=== PATIENT | female | born 1985 | race Caucasian/White ===

== ENCOUNTER 2016-08-11 23:57 | Outpatient (CLI) | payer OTHER | END 2016-08-11 23:58 | disposition critical access hospital (66) | LOC: EMS 23:57 | PROVIDERS: ATTEND Surgery | DX: T46.5X2A Poisoning by other antihypertensive drugs, intentional self-harm, initial encounter (principal); R47.81 Slurred speech; Y92.009 Unspecified place in unspecified non-institutional (private) residence as the place of occurrence of the external cause | CPT/HCPCS: A0425; A0427 ==

== ENCOUNTER 2016-08-12 00:13 | Emergency (ER) | payer OTHER ==
[2016-08-12] MEDS ORDERED: SODIUM CHLORIDE 0.9% 1,000 ML IV ONE (00:20)
[2016-08-12 00:48] LABS: BASOPHILS % (AUTO) 0.3 %; EOSINOPHILS # (AUTO) 0.1 10^3/uL (0.0-0.7); EOSINOPHILS % (AUTO) 0.6 %; HCT - HEMATOCRIT 40.1 % (37.0-47.0); HGB - HEMOGLOBIN 13.8 g/dL (12.0-16.0); LYMPHOCYTES # (AUTO) 2.3 10^3/uL (1.5-3.5); LYMPHOCYTES % (AUTO) 15.4 %; MEAN CORPUSCULAR HGB CONC 34.5 g/dL (32.0-36.0); MEAN CORPUSCULAR VOLUME 89.9 fL (81.0-99.0); MEAN PLATELET VOLUME 7.3 fL (7.9-10.8); MONOCYTES % (AUTO) 6.4 %; NEUTROPHILS # (AUTO) 11.8 10^3/uL (1.5-6.6); NEUTROPHILS % (AUTO) 77.3 %; RED BLOOD COUNT 4.46 10^6/uL (4.20-5.40); RED CELL DISTRIBUTION WIDTH 13.2 % (12.0-15.0); UNCORRECTED WHITE BLOOD COUNT 15.2 x10^3/uL; WHITE BLOOD COUNT 15.2 x10^3/uL (4.8-10.8)
[2016-08-12 01:04] LABS: ALBUMIN/GLOBULIN RATIO 1.5 (1.0-2.2); BILIRUBIN,TOTAL 0.3 mg/dL (0.2-1.0); BUN - BLOOD UREA NITROGEN 10 mg/dL (6-20); CALCIUM 8.7 mg/dL (8.5-10.3); CARBON DIOXIDE - CO2 24 mmol/L (21-32); CHLORIDE 100 mmol/L (101-111); CREATININE 0.8 mg/dL (0.4-1.0); GFR - MDRD 83 (>89); GLUCOSE 239 mg/dL (70-100); LIPASE 21 U/L (22-51); POTASSIUM 3.8 mmol/L (3.5-5.0); SALICYLATE < 6.0 mg/dL; SODIUM 134 mmol/L (135-145); TOTAL PROTEIN 7.4 g/dL (6.7-8.2)
[2016-08-12 01:06] LABS: BILIRUBIN,URINE NEGATIVE (NEGATIVE); PH,URINE 6.5 PH (5.0-7.5)
[2016-08-12 01:06] LABS: ACETAMINOPHEN < 10 ug/mL (10-30)
[2016-08-12 01:09] LABS: HCG UR QUAL NEGATIVE; UA w/ MICROSCOPIC CHARGE YES
[2016-08-12 01:15] LABS: UR CULTURE IF IND NOT INDICATED; WBC,URINE 0-3 /HPF (0-5)
[2016-08-12 05:06] VITALS: BP 159/93
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
== END 2016-08-12 06:27 | disposition home or self-care (01) ==
LOC: EDUNIT# → ED 00:13
DX: F32.9 Major depressive disorder, single episode, unspecified (principal); T46.5X1A Poisoning by other antihypertensive drugs, accidental (unintentional), initial encounter; F43.10 Post-traumatic stress disorder, unspecified; E03.9 Hypothyroidism, unspecified
CPT/HCPCS: 36415; 80053; 80306; 80307; 80320; 80329; 81001; 81003; 81025; 83690; 84443; 85025; 87086; 93005; 93010; 99284; 99285

== ENCOUNTER 2017-01-30 12:44 | Outpatient (CLI) | payer OTHER | END 2017-01-30 12:45 | disposition critical access hospital (66) | LOC: EMS 12:44 | PROVIDERS: ATTEND Surgery | DX: M54.2 Cervicalgia (principal); V47.5XXA Car driver injured in collision with fixed or stationary object in traffic accident, initial encounter; Y92.414 Local residential or business street as the place of occurrence of the external cause | CPT/HCPCS: A0425; A0429 ==

== ENCOUNTER 2017-01-30 12:56 | Emergency (ER) | payer OTHER ==
[2017-01-30] MEDS ORDERED: HYDROcod/ACETAM 5/325 MG TABLET PO STA (13:11)
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
[2017-01-30] MEDS ORDERED: HYDROcod/ACETAM 5/325 MG TABLET ONE (13:20)
--- NOTE | 2017-01-30 14:06 | CT Preliminary Report ---
Exam: CT HEAD W/O IMPRESSION: Right maxillary sinus opacification. Otherwise negative study. [facility] SITE ID: [id number]
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
--- NOTE | 2017-01-30 14:10 | CT Preliminary Report ---
Exam: CT CERVICAL SPINE W/O IMPRESSION: No acute disease. [facility] SITE ID: [id number]
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
--- NOTE | 2017-01-30 14:13 | CT Preliminary Report ---
Exam: CT CHEST W/O IMPRESSION: Renal calculi. No acute disease. [facility] SITE ID: [id number]
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
[2017-01-30 14:34] VITALS: BP 168/104
== END 2017-01-30 14:35 | disposition home or self-care (01) ==
LOC: EDUNIT# → ED 12:56
DX: S06.0X0A Concussion without loss of consciousness, initial encounter (principal); V47.5XXA Car driver injured in collision with fixed or stationary object in traffic accident, initial encounter; Y92.488 Other paved roadways as the place of occurrence of the external cause; E78.00 Pure hypercholesterolemia, unspecified; E03.9 Hypothyroidism, unspecified; S39.92XA Unspecified injury of lower back, initial encounter; M54.2 Cervicalgia; R03.0 Elevated blood-pressure reading, without diagnosis of hypertension; Z87.442 Personal history of urinary calculi
CPT/HCPCS: 70450; 71250; 72125; 99283; 99284; A9270

== ENCOUNTER 2017-02-01 12:35 | Outpatient (CLI) | payer OTHER | END 2017-02-01 12:36 | disposition critical access hospital (66) | LOC: EMS 12:35 | PROVIDERS: ATTEND Surgery | DX: R45.851 Suicidal ideations (principal) | CPT/HCPCS: A0425; A0427 ==

== ENCOUNTER 2017-02-01 12:50 | Inpatient (IN) | payer OTHER ==
[~2017-02-01 12:50] MED LIST: SODIUM CHLORIDE 0.9% 1,000 ML IV ONE
[2017-02-01 13:28] LABS: BASOPHILS % (AUTO) 0.4 %; EOSINOPHILS # (AUTO) 0.1 10^3/uL (0.0-0.7); EOSINOPHILS % (AUTO) 0.8 %; HCT - HEMATOCRIT 41.6 % (37.0-47.0); HGB - HEMOGLOBIN 14.1 g/dL (12.0-16.0); LYMPHOCYTES # (AUTO) 1.1 10^3/uL (1.5-3.5); LYMPHOCYTES % (AUTO) 8.7 %; MEAN CORPUSCULAR HEMOGLOBIN 30.5 pg (27.0-31.0); MEAN CORPUSCULAR HGB CONC 33.9 g/dL (32.0-36.0); MEAN CORPUSCULAR VOLUME 89.8 fL (81.0-99.0); MEAN PLATELET VOLUME 6.4 fL (7.9-10.8); MONOCYTES # (AUTO) 0.8 10^3/uL (0.0-1.0); MONOCYTES % (AUTO) 6.5 %; NEUTROPHILS % (AUTO) 83.6 %; RED BLOOD COUNT 4.64 10^6/uL (4.20-5.40); RED CELL DISTRIBUTION WIDTH 12.8 % (12.0-15.0); UNCORRECTED WHITE BLOOD COUNT 13.1 x10^3/uL; WHITE BLOOD COUNT 13.1 x10^3/uL (4.8-10.8)
[2017-02-01 13:32] LABS: BILIRUBIN,URINE NEGATIVE (NEGATIVE); HCG UR QUAL NEGATIVE; UA CHARGE (STRIP ONLY) YES; UR CULTURE IF IND NOT INDICATED
[2017-02-01 13:44] LABS: ALBUMIN/GLOBULIN RATIO 1.3 (1.0-2.2); BILIRUBIN,TOTAL 0.9 mg/dL (0.2-1.0); BUN - BLOOD UREA NITROGEN 26 mg/dL (6-20); CALCIUM 9.2 mg/dL (8.5-10.3); CARBON DIOXIDE - CO2 23 mmol/L (21-32); CHLORIDE 105 mmol/L (101-111); CREATININE 0.8 mg/dL (0.4-1.0); GFR - MDRD 83 (>89); GLUCOSE 123 mg/dL (70-100); LIPASE 28 U/L (22-51); POTASSIUM 3.7 mmol/L (3.5-5.0); SALICYLATE < 6.0 mg/dL; SODIUM 140 mmol/L (135-145); TOTAL PROTEIN 6.8 g/dL (6.7-8.2)
[2017-02-01 13:49] LABS: ACETAMINOPHEN < 10 ug/mL (10-30)
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
--- NOTE | 2017-02-01 15:08 | CT Preliminary Report ---
Exam: CT HEAD W/O IMPRESSION: 1. No acute or focal intracranial abnormality seen. 2. Complete opacification of the visualized portions of the right maxillary sinus with increased dens ity, could represent blood, inspissated mucus or fungal infection in the appropriate clinical setting . This was present on the prior. [facility] SITE ID: [id number]
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
[2017-02-01] MEDS ORDERED: ONDANSETRON ODT 4 MG TABLET TL PRN (16:08)
[2017-02-01] MEDS: SODIUM CHLORIDE 0.9% 1,000 ML IV SCH (18:34)
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
[2017-02-01] MEDS: SODIUM CHLORIDE FLUSH 0.9% 10 ML SYRINGE IVP SCH (20:44)
[2017-02-02] MEDS: SODIUM CHLORIDE 0.9% 1,000 ML IV SCH ×2 (05:03→14:53)
[2017-02-02 05:58] LABS: BASOPHILS % (AUTO) 0.2 %; EOSINOPHILS # (AUTO) 0.1 10^3/uL (0.0-0.7); EOSINOPHILS % (AUTO) 0.5 %; HCT - HEMATOCRIT 41.7 % (37.0-47.0); HGB - HEMOGLOBIN 13.6 g/dL (12.0-16.0); MEAN CORPUSCULAR HGB CONC 32.6 g/dL (32.0-36.0); MEAN CORPUSCULAR VOLUME 91.8 fL (81.0-99.0); MEAN PLATELET VOLUME 6.6 fL (7.9-10.8); MONOCYTES # (AUTO) 0.7 10^3/uL (0.0-1.0); MONOCYTES % (AUTO) 5.1 %; NEUTROPHILS # (AUTO) 12.7 10^3/uL (1.5-6.6); NEUTROPHILS % (AUTO) 87.2 %; RED BLOOD COUNT 4.54 10^6/uL (4.20-5.40); UNCORRECTED WHITE BLOOD COUNT 14.6 x10^3/uL; WHITE BLOOD COUNT 14.6 x10^3/uL (4.8-10.8)
[2017-02-02] MEDS: SODIUM CHLORIDE FLUSH 0.9% 10 ML SYRINGE IVP SCH ×3 (06:40→21:50)
[2017-02-02] MEDS: POLYETHYLENE GLYCOL 3350 17 GM PACKET PO SCH (09:27)
[2017-02-02] MEDS ORDERED: ACETAMINOPHEN 325 MG TABLET PO PRN (13:29)
--- NOTE | 2017-02-02 16:58 | PROVIDER PROGRESS NOTE ---
Subjective - Prog Note Date Prog Note Date: 02/02/17 Prog Note Time: 16:55 - Subjective Pt reports feeling: Improved Subjective: She is woken up a couple of times. Has been appropriate in her speech. She asked for a bath to get all that sharply writing off of her. She goes to sleep very easily. She has yet to eat anything. Current Medications - Current Medications Current Medications: Active Medications Acetaminophen (Tylenol) 650 mg PO Q4HR PRN PRN Reason: Pain 1 to 4 Acetaminophen (Tylenol) 650 mg PO Q4HR PRN PRN Reason: Pain or Fever > 38C (100.4F) Sodium Chloride (Normal Saline 0.9%) 1,000 mls @ 100 mls/hr IV .Q10H [facility] Last Admin: 02/02/17 14:53 Dose: 100 mls/hr Ondansetron HCl (Zofran Inj) 4 mg IVP Q6HR PRN PRN Reason: Nausea / Vomiting Ondansetron HCl (Zofran Odt) 4 mg TL Q6HR PRN PRN Reason: Nausea / Vomiting Polyethylene Glycol (Miralax) 17 gm PO DAILY [facility] Last Admin: 02/02/17 09:27 Dose: Not Given Sodium Chloride (Normal Saline Flush 0.9%) 10 ml IVP PRN PRN PRN Reason: NEEDED PER PROVIDER ORDERS Sodium Chloride (Normal Saline Flush 0.9%) 10 ml IVP Q8HR [facility] Last Admin: 02/02/17 14:53 Dose: 10 ml cloNIDine [Catapres] 0.2 mg PO QPM 05/22/15 Propranolol [Inderal] 20 mg PO DAILY 02/01/17 Albuterol Sulfate [Proair Hfa Inhaler] 2 puffs INH Q4H PRN 02/02/17 Atorvastatin Calcium 40 mg PO QPM 02/02/17 Cetirizine [ZyrTEC] 10 mg PO DAILY PRN 02/02/17 Dextroamphetamine/Amphetamine [Adderall Xr 20 mg Capsule] 20 mg PO DAILY Fluoxetine HCl [Fluoxetine HCl] 40 mg PO DAILY 02/02/17 Lorazepam [Ativan] 5 - 6 mg PO PRN PRN 02/02/17 Methylphenidate HCl [Concerta] 54 mg PO DAILY 02/02/17 Phenazopyridine HCl [Urinary Pain Relief] 97.5 mg PO PRN PRN 02/02/17 Phentermine HCl [Adipex-P] 37.5 mg PO BID 02/02/17 lamoTRIgine [Lamictal] 200 mg PO DAILY 02/02/17 Objective - Vital Signs/Intake & Output Reviewed Vital Signs: Yes Vital Signs: Vital Signs x48h Temp Pulse Pulse Resp BP Pulse Ox 02/02/17 15:18 36.7 C 78 20 122/78 95 02/02/17 13:10 36.6 C 80 18 117/78 97 Intake & Output: Intake & Output 01/30/17 01/31/17 02/01/17 02/02/17 23:59 23:59 23:59 23:59 Intake Total 1983.333 Output Total 550 575 Balance -550 1408.333 - Objective General Appearance: positive: No acute distress, Lethargic, Other (Sleeping most of the day. Does respond to voice. Wakes up easily. Because right back to sleep.) Eyes Bilateral: positive: PERRL, EOMI ENT: positive: Pharynx nml Neck: positive: No JVD. negative: Stiff neck, Carotid bruit Respiratory: positive: Chest non-tender, Other (Will snore at times in her sleep ). negative: Wheezes, Rales, Rhonchi Cardiovascular: positive: Regular rate & rhythm. negative: Gallop/S4, Friction rub Abdomen: positive: Non-tender, No organomegaly, Nml bowel sounds, No distention Skin: positive: Warm, Dry Extremities: positive: Non-tender, No pedal edema Neurologic/Psychiatric: positive: CN's nml (2-12), Motor nml, Disoriented to time - Lab Results Fish Bones: 02/02/17 05:41 02/01/17 13:23 Other Labs: Lab Results x24hrs 02/02/17 02/02/17 Range/Units 05:41 05:41 WBC 14.6 H (4.8-10.8) x10^3/uL RBC 4.54 (4.20-5.40) 10^6/uL Hgb 13.6 (12.0-16.0) g/dL Hct 41.7 (37.0-47.0) % MCV 91.8 (81.0-99.0) fL MCH 30.0 (27.0-31.0) pg MCHC 32.6 (32.0-36.0) g/dL RDW 13.0 (12.0-15.0) % Plt Count 301 (130-450) 10^3/uL MPV 6.6 L (7.9-10.8) fL Neut # 12.7 H (1.5-6.6) 10^3/uL Lymph # 1.0 L (1.5-3.5) 10^3/uL [place] # 0.7 (0.0-1.0) 10^3/uL Eos # 0.1 (0.0-0.7) 10^3/uL Baso # 0.0 (0.0-0.1) 10^3/uL Absolute Nucleated RBC 0.00 x10^3/uL Nucleated RBC % 0.0 /100WBC Magnesium 1.8 (1.7-2.8) mg/dL Assessment/Plan - Problem List (1) Drug overdose Impression: Polysubstance. Still not clear what bottles they were. She is waking up. Still not completely with it enough to get up and walk around, eat, dress herself etc. We will continue to monitor blood pressure, and will continue IV fluids. Will wait for her to wake up, eat at least 1 or 2 meals before [facility] Qualifiers: Encounter type: initial encounter Injury intent: undetermined intent Qualified Code(s): T50.904A - Poisoning by unspecified drugs, medicaments and biological substances, undetermined, initial encounter
[2017-02-02] MEDS: ACETAMINOPHEN 325 MG TABLET PO PRN (21:17)
[2017-02-03] MEDS: SODIUM CHLORIDE 0.9% 1,000 ML IV SCH (01:06)
[2017-02-03] MEDS: ACETAMINOPHEN 325 MG TABLET PO PRN ×2 (04:08→17:27)
[2017-02-03] MEDS: SODIUM CHLORIDE FLUSH 0.9% 10 ML SYRINGE IVP SCH ×3 (06:16→17:28)
[2017-02-03 06:32] LABS: BASOPHILS % (AUTO) 0.3 %; EOSINOPHILS # (AUTO) 0.2 10^3/uL (0.0-0.7); EOSINOPHILS % (AUTO) 1.4 %; HCT - HEMATOCRIT 37.1 % (37.0-47.0); HGB - HEMOGLOBIN 12.4 g/dL (12.0-16.0); LYMPHOCYTES # (AUTO) 1.6 10^3/uL (1.5-3.5); LYMPHOCYTES % (AUTO) 12.9 %; MEAN CORPUSCULAR HEMOGLOBIN 30.2 pg (27.0-31.0); MEAN CORPUSCULAR HGB CONC 33.3 g/dL (32.0-36.0); MEAN CORPUSCULAR VOLUME 90.6 fL (81.0-99.0); MEAN PLATELET VOLUME 6.7 fL (7.9-10.8); MONOCYTES # (AUTO) 1.3 10^3/uL (0.0-1.0); MONOCYTES % (AUTO) 10.4 %; NEUTROPHILS # (AUTO) 9.1 10^3/uL (1.5-6.6); RED CELL DISTRIBUTION WIDTH 12.7 % (12.0-15.0); UNCORRECTED WHITE BLOOD COUNT 12.2 x10^3/uL; WHITE BLOOD COUNT 12.2 x10^3/uL (4.8-10.8)
[2017-02-03 06:40] LABS: CALCIUM 8.3 mg/dL (8.5-10.3); CREATININE 0.8 mg/dL (0.4-1.0); POTASSIUM 3.5 mmol/L (3.5-5.0)
[2017-02-03] MEDS ORDERED: SODIUM CHLORIDE 0.9% 1,000 ML IV SCH (09:16)
[2017-02-03] MEDS: POLYETHYLENE GLYCOL 3350 17 GM PACKET PO SCH (11:51)
--- NOTE | 2017-02-03 16:45 | PROVIDER PROGRESS NOTE ---
Assessment/Plan - Problem List (1) Drug overdose Qualifiers: Encounter type: subsequent encounter Injury intent: undetermined intent Qualified Code(s): T50.904D - Poisoning by unspecified drugs, medicaments and biological substances, undetermined, subsequent encounter Assessment/Plan: Continue 1:1 watching and advance activity and diet as tolerated. Pt not yet at her baseline to be medically cleared for call to [facility]. (2) Flank pain, acute Assessment/Plan: Will obtain abdomen ultrasound to evaluate for a stone. Pain meds prn. - Current Meds Current Meds: Current Medications Generic Name Dose Route Start Last Admin Trade Name Freq PRN Reason Stop Dose Admin Acetaminophen 650 mg 02/01/17 16:08 02/03/17 04:08 Tylenol PO 650 mg Q4HR PRN Administration Pain 1 to 4 Sodium Chloride 1,000 mls @ 50 mls/hr 02/03/17 09:16 02/03/17 11:52 Normal Saline 0.9% IV 50 mls/hr .Q20H OPAL Administration Polyethylene Glycol 17 gm 02/02/17 09:00 02/03/17 11:51 Miralax PO Not Given DAILY OPAL Sodium Chloride 10 ml 02/01/17 22:00 02/03/17 12:29 Normal Saline Flush 0.9% IVP Not Given Q8HR OPAL - Lab Result Fish Bone Diagrams: 02/03/17 06:25 02/03/17 06:25 - Additional Planning My Orders: My Active Orders 02/03/17 09:16 Sodium Chloride 0.9% [Normal Saline 0.9%] 1,000 ml IV 50 mls/hr Subjective - Subjective Patient Reports: Back Pain ("R flank pain, like my previous kidney stones".) Nursing Reports: Other (Pt awake and speaking appropriately. Pt walked with front-wheeled walker to and was unsteady. Pt only eaing 25% of her solids and fluids.) Objective Vital Signs: Vital Signs - 24 hr 02/03/17 02/03/17 05:04 13:29 Temperature 37.1 C 37.0 C Heart Rate [ 84 94 Brachial] Respiratory 18 18 Rate Blood Pressure 102/69 111/68 [Right Brachial artery] O2 Saturation 98 98 Oxygen O2 Source Room air I&O (Last 24 Hrs): Intake and Output Totals x24h 02/01/17 02/02/1717 23:59 23:59 23:59 Intake Total 1285 2275.000 Balance 1285 2275.000 General: Alert, Oriented x3 HEENT: Mucous membr. moist/pink Neck: Supple, No JVD Cardiovascular: Regular rate, No murmurs Respiratory: No respiratory distress Abdomen: Soft Extremities: No edema - Results Results: Laboratory Results WBC 12.2 x10^3/uL (4.8-10.8) H 02/03/17 06:25 RBC 4.10 10^6/uL (4.20-5.40) L 02/03/17 06:25 Hgb 12.4 g/dL (12.0-16.0) 02/03/17 06:25 Hct 37.1 % (37.0-47.0) 02/03/17 06:25 MCV 90.6 fL (81.0-99.0) 02/03/17 06:25 MCH 30.2 pg (27.0-31.0) 02/03/17 06:25 MCHC 33.3 g/dL (32.0-36.0) 02/03/17 06:25 RDW 12.7 % (12.0-15.0) 02/03/17 06:25 Plt Count 292 10^3/uL (130-450) 02/03/17 06:25 MPV 6.7 fL (7.9-10.8) L 02/03/17 06:25 Neut # 9.1 10^3/uL (1.5-6.6) H 02/03/17 06:25 Lymph # 1.6 10^3/uL (1.5-3.5) 02/03/17 06:25 [place] # 1.3 10^3/uL (0.0-1.0) H 02/03/17 06:25 Eos # 0.2 10^3/uL (0.0-0.7) 02/03/17 06:25 Baso # 0.0 10^3/uL (0.0-0.1) 02/03/17 06:25 Absolute Nucleated RBC 0.00 x10^3/uL 02/03/17 06:25 Nucleated RBC % 0.0 /100WBC 02/03/17 06:25 Sodium 139 mmol/L (135-145) 02/03/17 06:25 Potassium 3.5 mmol/L (3.5-5.0) 02/03/17 06:25 Chloride 111 mmol/L (101-111) 02/03/17 06:25 Carbon Dioxide 21 mmol/L (21-32) 02/03/17 06:25 Anion Gap 7.0 (6-13) 02/03/17 06:25 BUN 10 mg/dL (6-20) 02/03/17 06:25 Creatinine 0.8 mg/dL (0.4-1.0) 02/03/17 06:25 Estimated GFR (MDRD) 83 (>89) L 02/03/17 06:25 Glucose 99 mg/dL (70-100) 02/03/17 06:25 Calcium 8.3 mg/dL (8.5-10.3) L 02/03/17 06:25 Magnesium 1.8 mg/dL (1.7-2.8) 02/02/17 05:41 Total Bilirubin 0.9 mg/dL (0.2-1.0) 02/01/17 13:23 AST 27 IU/L (10-42) 02/01/17 13:23 ALT 36 IU/L (10-60) 02/01/17 13:23 Alkaline Phosphatase 58 IU/L (42-121) 02/01/17 13:23 Total Protein 6.8 g/dL (6.7-8.2) 02/01/17 13:23 Albumin 3.8 g/dL (3.2-5.5) 02/01/17 13:23 Globulin 3.0 g/dL (2.1-4.2) 02/01/17 13:23 Albumin/Globulin Ratio 1.3 (1.0-2.2) 02/01/17 13:23 Lipase 28 U/L (22-51) 02/01/17 13:23 Urine Color DARK YELLOW 02/01/17 13:18 Urine Clarity CLEAR (CLEAR) 02/01/17 13:18 Urine pH 6.0 PH (5.0-7.5) 02/01/17 13:18 Ur Specific [place] >=1.030 (1.002-1.030) H 02/01/17 13:18 Urine Protein NEGATIVE mg/dL (NEGATIVE) 02/01/17 13:18 Urine Glucose (UA) NEGATIVE mg/dL (NEGATIVE) 02/01/17 13:18 Urine Ketones NEGATIVE mg/dL (NEGATIVE) 02/01/17 13:18 Urine Occult Blood NEGATIVE (NEGATIVE) 02/01/17 13:18 Urine Nitrite NEGATIVE (NEGATIVE) 02/01/17 13:18 Urine Bilirubin NEGATIVE (NEGATIVE) 02/01/17 13:18 Urine Urobilinogen 0.2 (NORMAL) E.U./dL (NORMAL) 02/01/17 13:18 Ur Leukocyte Esterase NEGATIVE (NEGATIVE) 02/01/17 13:18 Ur Microscopic Review NOT INDICATED 02/01/17 13:18 Urine Culture Comments NOT INDICATED 02/01/17 13:18 Urine HCG, Qual NEGATIVE 02/01/17 13:18 Salicylates < 6.0 mg/dL 02/01/17 13:23 Urine Opiates Screen POSITIVE (NEGATIVE) H 02/01/17 13:18 Ur Oxycodone Screen NEGATIVE (NEGATIVE) 02/01/17 13:18 Urine Methadone Screen NEGATIVE (NEGATIVE) 02/01/17 13:18 Ur Propoxyphene Screen NEGATIVE (NEGATIVE) 02/01/17 13:18 Acetaminophen < 10 ug/mL (10-30) L 02/01/17 13:23 Ur Barbiturates Screen NEGATIVE (NEGATIVE) 02/01/17 13:18 Ur Tricyclics Screen POSITIVE (NEGATIVE) H 02/01/17 13:18 Ur Phencyclidine Scrn NEGATIVE (NEGATIVE) 02/01/17 13:18 Ur Amphetamine Screen POSITIVE (NEGATIVE) H 02/01/17 13:18 U Methamphetamines Scrn NEGATIVE (NEGATIVE) 02/01/17 13:18 U Benzodiazepines Scrn POSITIVE (NEGATIVE) H 02/01/17 13:18 Urine Cocaine Screen NEGATIVE (NEGATIVE) 02/01/17 13:18 U Cannabinoids Screen NEGATIVE (NEGATIVE) 02/01/17 13:18 Ethyl Alcohol < 5.0 mg/dL 02/01/17 13:23 - Procedures Procedures: Procedures RETROGRADE PYELOGRAM (04/02/13) TU REMOV URETER OBSTRUCT (04/02/13)
[2017-02-03] MEDS ORDERED: KETOROLAC 30 MG/ML VIAL IVP SCH (21:19)
[2017-02-03] MEDS: SODIUM CHLORIDE FLUSH 0.9% 10 ML SYRINGE IVP PRN (22:11)
--- NOTE | 2017-02-03 23:33 | Ultrasound Preliminary Report ---
Exam: US RETROPERITONEAL LIMITED IMPRESSION: No acute abnormality. [facility] SITE ID: [id number]
--- NOTE | 2017-02-03 23:56 | Ultrasound Report ---
EXAM: RENAL ULTRASOUND EXAM DATE: 02/03/2017 10:20 PM. CLINICAL HISTORY: Right-sided flank pain. COMPARISON: Ultrasound 08/13/[address] 08/13/2015, CT 12/18/2015. TECHNIQUE: Real-time scanning was performed with static images obtained. FINDINGS: Right Kidney: Right kidney measures 11.6 cm in length. A few scattered echogenic foci are seen, artif act versus subtle tiny kidney stones. No hydronephrosis. No contour deforming renal mass. Left Kidney: Not visualized or assessed on this exam. Bladder: Right-sided ureteral jet is visualized. IMPRESSION: No acute abnormality. [facility] Referring Provider Line: [phone] SITE ID: [id number]
[2017-02-04] MEDS: ACETAMINOPHEN 325 MG TABLET PO PRN (04:31)
[2017-02-04] MEDS ORDERED: ALBUTEROL NEB 2.5 MG/3 ML INH STA (05:22)
[2017-02-04 05:41] LABS: CALCIUM 8.5 mg/dL (8.5-10.3); CREATININE 0.6 mg/dL (0.4-1.0); POTASSIUM 3.6 mmol/L (3.5-5.0)
[2017-02-04] MEDS: SODIUM CHLORIDE FLUSH 0.9% 10 ML SYRINGE IVP SCH ×3 (06:02→20:21)
[2017-02-04] MEDS: SODIUM CHLORIDE FLUSH 0.9% 10 ML SYRINGE IVP PRN (06:02)
[2017-02-04] MEDS: POLYETHYLENE GLYCOL 3350 17 GM PACKET PO SCH (09:55)
--- NOTE | 2017-02-04 11:59 | PROVIDER PROGRESS NOTE ---
Assessment/Plan - Problem List (1) Drug overdose Qualifiers: Encounter type: subsequent encounter Injury intent: undetermined intent Qualified Code(s): T50.904D - Poisoning by unspecified drugs, medicaments and biological substances, undetermined, subsequent encounter Assessment/Plan: Pt more alert. No evidence of orthostasis and she is able to ambulate, take a shower without unsteadiness. Pt is now medically clear to be evaluated for further psychiatric care. (2) Flank pain, acute Assessment/Plan: Resolved with passing a stone. Pt is now medically clear to be evaluated for further psychiatric care. - Current Meds Current Meds: Current Medications Generic Name Dose Route Start Last Admin Trade Name Freq PRN Reason Stop Dose Admin Acetaminophen 650 mg 02/01/17 16:08 02/04/17 04:31 Tylenol PO 650 mg Q4HR PRN Administration Pain 1 to 4 Polyethylene Glycol 17 gm 02/02/17 09:00 02/04/17 09:55 Miralax PO Not Given DAILY OPAL Sodium Chloride 10 ml 02/01/17 16:08 02/04/17 06:02 Normal Saline Flush 0.9% IVP 10 ml PRN PRN Administration NEEDED PER PROVIDER ORDERS Sodium Chloride 10 ml 02/01/17 22:00 02/04/17 06:02 Normal Saline Flush 0.9% IVP 10 ml Q8HR OPAL Administration - Lab Result Fish Bone Diagrams: 02/03/17 06:25 02/04/17 05:11 - Additional Planning My Orders: My Active Orders 02/04/17 08:09 Postural [Vital Signs - Postural] [RC] DAILY Subjective - Subjective Patient Reports: Feeling Better, Other (Did pass a stone) Nursing Reports: No Complaints Objective Vital Signs: Vital Signs - 24 hr 02/03/17 02/03/17 02/03/17 13:29 17:47 23:40 Temperature 37.0 C 37.2 C 36.8 C Heart Rate [ 94 104 H 99 Brachial] Respiratory 18 18 18 Rate Blood Pressure 111/68 140/85 H 137/89 H [Right Brachial artery] O2 Saturation 98 98 99 02/04/17 02/04/17 10:26 11:01 Temperature 37.1 C Heart Rate [ 95 Brachial] Respiratory 18 Rate Blood Pressure 136/82 H 136/82 H [Right Brachial artery] O2 Saturation 98 Oxygen O2 Source Room air I&O (Last 24 Hrs): Intake and Output Totals x24h 02/02/17 02/03/17 02/04/17 23:59 23:59 23:59 Intake Total 1285 3015.000 200 Balance 1285 3015.000 200 General: Alert, Oriented x3, Other (Tearful, describing divorce) HEENT: Mucous membr. moist/pink Neck: Supple Neuro: Oriented Times 3 Cardiovascular: Regular rate, No murmurs Respiratory: No respiratory distress Abdomen: Soft Extremities: No edema - Results Results: Laboratory Results WBC 12.2 x10^3/uL (4.8-10.8) H 02/03/17 06:25 RBC 4.10 10^6/uL (4.20-5.40) L 02/03/17 06:25 Hgb 12.4 g/dL (12.0-16.0) 02/03/17 06:25 Hct 37.1 % (37.0-47.0) 02/03/17 06:25 MCV 90.6 fL (81.0-99.0) 02/03/17 06:25 MCH 30.2 pg (27.0-31.0) 02/03/17 06:25 MCHC 33.3 g/dL (32.0-36.0) 02/03/17 06:25 RDW 12.7 % (12.0-15.0) 02/03/17 06:25 Plt Count 292 10^3/uL (130-450) 02/03/17 06:25 MPV 6.7 fL (7.9-10.8) L 02/03/17 06:25 Neut # 9.1 10^3/uL (1.5-6.6) H 02/03/17 06:25 Lymph # 1.6 10^3/uL (1.5-3.5) 02/03/17 06:25 [place] # 1.3 10^3/uL (0.0-1.0) H 02/03/17 06:25 Eos # 0.2 10^3/uL (0.0-0.7) 02/03/17 06:25 Baso # 0.0 10^3/uL (0.0-0.1) 02/03/17 06:25 Absolute Nucleated RBC 0.00 x10^3/uL 02/03/17 06:25 Nucleated RBC % 0.0 /100WBC 02/03/17 06:25 Sodium 138 mmol/L (135-145) 02/04/17 05:11 Potassium 3.6 mmol/L (3.5-5.0) 02/04/17 05:11 Chloride 107 mmol/L (101-111) 02/04/17 05:11 Carbon Dioxide 23 mmol/L (21-32) 02/04/17 05:11 Anion Gap 8.0 (6-13) 02/04/17 05:11 BUN 7 mg/dL (6-20) 02/04/17 05:11 Creatinine 0.6 mg/dL (0.4-1.0) 02/04/17 05:11 Estimated GFR (MDRD) 116 (>89) 02/04/17 05:11 Glucose 110 mg/dL (70-100) H 02/04/17 05:11 Calcium 8.5 mg/dL (8.5-10.3) 02/04/17 05:11 Magnesium 1.8 mg/dL (1.7-2.8) 02/02/17 05:41 Total Bilirubin 0.9 mg/dL (0.2-1.0) 02/01/17 13:23 AST 27 IU/L (10-42) 02/01/17 13:23 ALT 36 IU/L (10-60) 02/01/17 13:23 Alkaline Phosphatase 58 IU/L (42-121) 02/01/17 13:23 Total Protein 6.8 g/dL (6.7-8.2) 02/01/17 13:23 Albumin 3.8 g/dL (3.2-5.5) 02/01/17 13:23 Globulin 3.0 g/dL (2.1-4.2) 02/01/17 13:23 Albumin/Globulin Ratio 1.3 (1.0-2.2) 02/01/17 13:23 Lipase 28 U/L (22-51) 02/01/17 13:23 Urine Color DARK YELLOW 02/01/17 13:18 Urine Clarity CLEAR (CLEAR) 02/01/17 13:18 Urine pH 6.0 PH (5.0-7.5) 02/01/17 13:18 Ur Specific [place] >=1.030 (1.002-1.030) H 02/01/17 13:18 Urine Protein NEGATIVE mg/dL (NEGATIVE) 02/01/17 13:18 Urine Glucose (UA) NEGATIVE mg/dL (NEGATIVE) 02/01/17 13:18 Urine Ketones NEGATIVE mg/dL (NEGATIVE) 02/01/17 13:18 Urine Occult Blood NEGATIVE (NEGATIVE) 02/01/17 13:18 Urine Nitrite NEGATIVE (NEGATIVE) 02/01/17 13:18 Urine Bilirubin NEGATIVE (NEGATIVE) 02/01/17 13:18 Urine Urobilinogen 0.2 (NORMAL) E.U./dL (NORMAL) 02/01/17 13:18 Ur Leukocyte Esterase NEGATIVE (NEGATIVE) 02/01/17 13:18 Ur Microscopic Review NOT INDICATED 02/01/17 13:18 Urine Culture Comments NOT INDICATED 02/01/17 13:18 Urine HCG, Qual NEGATIVE 02/01/17 13:18 Salicylates < 6.0 mg/dL 02/01/17 13:23 Urine Opiates Screen POSITIVE (NEGATIVE) H 02/01/17 13:18 Ur Oxycodone Screen NEGATIVE (NEGATIVE) 02/01/17 13:18 Urine Methadone Screen NEGATIVE (NEGATIVE) 02/01/17 13:18 Ur Propoxyphene Screen NEGATIVE (NEGATIVE) 02/01/17 13:18 Acetaminophen < 10 ug/mL (10-30) L 02/01/17 13:23 Ur Barbiturates Screen NEGATIVE (NEGATIVE) 02/01/17 13:18 Ur Tricyclics Screen POSITIVE (NEGATIVE) H 02/01/17 13:18 Ur Phencyclidine Scrn NEGATIVE (NEGATIVE) 02/01/17 13:18 Ur Amphetamine Screen POSITIVE (NEGATIVE) H 02/01/17 13:18 U Methamphetamines Scrn NEGATIVE (NEGATIVE) 02/01/17 13:18 U Benzodiazepines Scrn POSITIVE (NEGATIVE) H 02/01/17 13:18 Urine Cocaine Screen NEGATIVE (NEGATIVE) 02/01/17 13:18 U Cannabinoids Screen NEGATIVE (NEGATIVE) 02/01/17 13:18 Ethyl Alcohol < 5.0 mg/dL 02/01/17 13:23 - Procedures Procedures: Procedures RETROGRADE PYELOGRAM (04/02/13) TU REMOV URETER OBSTRUCT (04/02/13)
[2017-02-04] MEDS: ALBUTEROL NEB 2.5 MG/3 ML INH PRN (12:05)
[2017-02-04] MEDS: ONDANSETRON 4 MG/2 ML VIAL IVP PRN (20:23)
[2017-02-05] MEDS: BENZOCAINE/MENTHOL LOZENGE MM PRN ×3 (01:39→20:19)
[2017-02-05] MEDS: ACETAMINOPHEN 325 MG TABLET PO PRN ×3 (01:43→13:22)
[2017-02-05] MEDS: ALBUTEROL NEB 2.5 MG/3 ML INH PRN (02:00)
[2017-02-05] MEDS ORDERED: KETOROLAC 30 MG/ML VIAL IVP STA (02:53)
[2017-02-05] MEDS: ONDANSETRON 4 MG/2 ML VIAL IVP PRN ×2 (04:30→13:23)
[2017-02-05] MEDS: guaiFENesin/DEXTROMETHORPHAN 10 ML UDC PO PRN ×2 (04:30→20:18)
[2017-02-05] MEDS: SODIUM CHLORIDE FLUSH 0.9% 10 ML SYRINGE IVP SCH ×3 (04:30→22:01)
[2017-02-05] MEDS: SODIUM CHLORIDE FLUSH 0.9% 10 ML SYRINGE IVP PRN (04:30)
[2017-02-05] MEDS: POLYETHYLENE GLYCOL 3350 17 GM PACKET PO SCH (09:03)
[2017-02-05] MEDS ORDERED: ACETAMINOPHEN 1,000 MG/100 ML 100 ML IV ONE (14:09)
[2017-02-05] MEDS ORDERED: PROCHLORPERAZINE INJ 10 MG in SODIUM CHLORIDE 0.9% 50 ML IV ONE (14:10)
[2017-02-05] MEDS ORDERED: PROCHLORPERAZINE 10 MG/2 ML VIAL IVP SCH (15:00)
--- NOTE | 2017-02-05 15:06 | PROVIDER PROGRESS NOTE ---
Assessment/Plan - Problem List (1) Drug overdose Qualifiers: Encounter type: subsequent encounter Injury intent: undetermined intent Qualified Code(s): T50.904D - Poisoning by unspecified drugs, medicaments and biological substances, undetermined, subsequent encounter Assessment/Plan: Pt has agreed to inpatient transfer for further psychiatric management. Our Collar Tailor was informed that Pt has new complaints and today is NOT clinically stable for a transfer. (2) Flank pain, acute Assessment/Plan: Pt describes that she has needed many lithotripsies, gets severe R flank pain which she teats with a long warm shower. She gets N/V from the pain of the kidney stone. It usually takes 1-2 days for each stone to pass. Will order U/a and culture, strain urine and provide pain meds with iv Ofirmev or iv Dilaudid. (3) Nausea & vomiting Assessment/Plan: Pt reports that this happens during a kidney stone attack. Will change diet to clear liquids and start iv hydration and give anti-emetics. (4) Leg pain, left Assessment/Plan: The L thigh pain is not new, but is in a larger area over the lateral L thigh. The calf tenderness and bruising is new, per Pt. Will order a Duplex Doppler to R/O DVT. Lovenox will not be started prophylacticvally, unless a DVT is confirmed, due to high risk of bleeding from a kidney stone being passed. (5) Depression Assessment/Plan: The pt describes being on Prozac which will be resumed. Also, the Clonidine hs is for sleep (nightmares) and the Propranolol is prn panic attack (stage fright-type response) from trauma as a child. - Current Meds Current Meds: Current Medications Generic Name Dose Route Start Last Admin Trade Name Freq PRN Reason Stop Dose Admin Albuterol 2.5 mg 02/04/17 05:22 02/05/17 02:00 INH 2.5 mg RTQ4H PRN Administration Wheezing Guaifenesin 10 ml 02/05/17 03:02 02/05/17 04:30 Robitussin Dm PO 10 ml Q6HR PRN Administration Cough Ondansetron HCl 4 mg 02/01/17 16:08 02/05/17 13:23 Zofran Inj IVP 4 mg Q6HR PRN Administration Nausea / Vomiting Polyethylene Glycol 17 gm 02/02/17 09:00 02/05/17 09:03 Miralax PO Not Given DAILY OPAL Sodium Chloride 10 ml 02/01/17 16:08 02/05/17 04:30 Normal Saline Flush 0.9% IVP 10 ml PRN PRN Administration NEEDED PER PROVIDER ORDERS Sodium Chloride 10 ml 02/01/17 22:00 02/05/17 08:50 Normal Saline Flush 0.9% IVP 10 ml Q8HR OPLA Administration Throat Lozenges 1 lozenge 02/05/17 01:31 02/05/17 08:46 Cepacol MM 1 lozenge Q2HR PRN Administration Throat pain - Lab Result Fish Bone Diagrams: 02/03/17 06:25 02/04/17 05:11 - Additional Planning My Orders: My Active Orders 02/05/17 15:00 Prochlorperazine Inj [Compazine Inj] 10 mg IVP ONCE 02/05/17 Dinner DIET [Clear Liquid Diet] [DIET] Subjective - Subjective Patient Reports: Abdominal Pain, Nausea, Other (R flank pain L lateral thigh and calf numbness) Nursing Reports: Other (Pt curled up due to abd pain, vomiting x2) Objective Vital Signs: Vital Signs - 24 hr 02/04/17 02/04/17 02/04/17 16:15 19:50 21:40 Temperature 37.4 C 38.9 C H Heart Rate 95 Heart Rate [ 96 Brachial] Heart Rate [ Monitoring electrodes] Respiratory 16 16 Rate Blood Pressure [Left Brachial artery] Blood Pressure 143/60 H 135/89 H [Right Brachial artery] O2 Saturation 97 02/05/17 02/05/17 02/05/17 00:00 02:00 08:47 Temperature 37.0 C 36.6 C Heart Rate 82 Heart Rate [ 81 Brachial] Heart Rate [ 81 Monitoring electrodes] Respiratory 18 16 20 Rate Blood Pressure 141/88 H [Left Brachial artery] Blood Pressure 135/87 H [Right Brachial artery] O2 Saturation 98 97 02/05/17 11:50 Temperature Heart Rate Heart Rate [ Brachial] Heart Rate [ Monitoring electrodes] Respiratory Rate Blood Pressure 142/82 H [Left Brachial artery] Blood Pressure [Right Brachial artery] O2 Saturation Oxygen O2 Source Room air I&O (Last 24 Hrs): Intake and Output Totals x24h 02/03/17 02/04/17 02/05/17 23:59 23:59 23:59 Intake Total 3015.410 051 7026 Output Total 350 Balance 3015.000 990 850 General: Alert, Other (Tearfull) HEENT: Mucous membr. moist/pink, Other (Eyes red from crying) Neck: Supple Neuro: Alert Cardiovascular: Regular rate, No murmurs Respiratory: No respiratory distress Abdomen: Soft, Other (R flank tenderness) Extremities: No edema, Other (L lateral thigh appears normal, sensative to toucg. No calf tendernes. Has several bruises of L yang and inner calf. No palpable cord.) - Results Results: Laboratory Results WBC 12.2 x10^3/uL (4.8-10.8) H 02/03/17 06:25 RBC 4.10 10^6/uL (4.20-5.40) L 02/03/17 06:25 Hgb 12.4 g/dL (12.0-16.0) 02/03/17 06:25 Hct 37.1 % (37.0-47.0) 02/03/17 06:25 MCV 90.6 fL (81.0-99.0) 02/03/17 06:25 MCH 30.2 pg (27.0-31.0) 02/03/17 06:25 MCHC 33.3 g/dL (32.0-36.0) 02/03/17 06:25 RDW 12.7 % (12.0-15.0) 02/03/17 06:25 Plt Count 292 10^3/uL (130-450) 02/03/17 06:25 MPV 6.7 fL (7.9-10.8) L 02/03/17 06:25 Neut # 9.1 10^3/uL (1.5-6.6) H 02/03/17 06:25 Lymph # 1.6 10^3/uL (1.5-3.5) 02/03/17 06:25 [place] # 1.3 10^3/uL (0.0-1.0) H 02/03/17 06:25 Eos # 0.2 10^3/uL (0.0-0.7) 02/03/17 06:25 Baso # 0.0 10^3/uL (0.0-0.1) 02/03/17 06:25 Absolute Nucleated RBC 0.00 x10^3/uL 02/03/17 06:25 Nucleated RBC % 0.0 /100WBC 02/03/17 06:25 Sodium 138 mmol/L (135-145) 02/04/17 05:11 Potassium 3.6 mmol/L (3.5-5.0) 02/04/17 05:11 Chloride 107 mmol/L (101-111) 02/04/17 05:11 Carbon Dioxide 23 mmol/L (21-32) 02/04/17 05:11 Anion Gap 8.0 (6-13) 02/04/17 05:11 BUN 7 mg/dL (6-20) 02/04/17 05:11 Creatinine 0.6 mg/dL (0.4-1.0) 02/04/17 05:11 Estimated GFR (MDRD) 116 (>89) 02/04/17 05:11 Glucose 110 mg/dL (70-100) H 02/04/17 05:11 Calcium 8.5 mg/dL (8.5-10.3) 02/04/17 05:11 Magnesium 1.8 mg/dL (1.7-2.8) 02/02/17 05:41 Total Bilirubin 0.9 mg/dL (0.2-1.0) 02/01/17 13:23 AST 27 IU/L (10-42) 02/01/17 13:23 ALT 36 IU/L (10-60) 02/01/17 13:23 Alkaline Phosphatase 58 IU/L (42-121) 02/01/17 13:23 Total Protein 6.8 g/dL (6.7-8.2) 02/01/17 13:23 Albumin 3.8 g/dL (3.2-5.5) 02/01/17 13:23 Globulin 3.0 g/dL (2.1-4.2) 02/01/17 13:23 Albumin/Globulin Ratio 1.3 (1.0-2.2) 02/01/17 13:23 Lipase 28 U/L (22-51) 02/01/17 13:23 Urine Color DARK YELLOW 02/01/17 13:18 Urine Clarity CLEAR (CLEAR) 02/01/17 13:18 Urine pH 6.0 PH (5.0-7.5) 02/01/17 13:18 Ur Specific [place] >=1.030 (1.002-1.030) H 02/01/17 13:18 Urine Protein NEGATIVE mg/dL (NEGATIVE) 02/01/17 13:18 Urine Glucose (UA) NEGATIVE mg/dL (NEGATIVE) 02/01/17 13:18 Urine Ketones NEGATIVE mg/dL (NEGATIVE) 02/01/17 13:18 Urine Occult Blood NEGATIVE (NEGATIVE) 02/01/17 13:18 Urine Nitrite NEGATIVE (NEGATIVE) 02/01/17 13:18 Urine Bilirubin NEGATIVE (NEGATIVE) 02/01/17 13:18 Urine Urobilinogen 0.2 (NORMAL) E.U./dL (NORMAL) 02/01/17 13:18 Ur Leukocyte Esterase NEGATIVE (NEGATIVE) 02/01/17 13:18 Ur Microscopic Review NOT INDICATED 02/01/17 13:18 Urine Culture Comments NOT INDICATED 02/01/17 13:18 Urine HCG, Qual NEGATIVE 02/01/17 13:18 Salicylates < 6.0 mg/dL 02/01/17 13:23 Urine Opiates Screen POSITIVE (NEGATIVE) H 02/01/17 13:18 Ur Oxycodone Screen NEGATIVE (NEGATIVE) 02/01/17 13:18 Urine Methadone Screen NEGATIVE (NEGATIVE) 02/01/17 13:18 Ur Propoxyphene Screen NEGATIVE (NEGATIVE) 02/01/17 13:18 Acetaminophen < 10 ug/mL (10-30) L 02/01/17 13:23 Ur Barbiturates Screen NEGATIVE (NEGATIVE) 02/01/17 13:18 Ur Tricyclics Screen POSITIVE (NEGATIVE) H 02/01/17 13:18 Ur Phencyclidine Scrn NEGATIVE (NEGATIVE) 02/01/17 13:18 Ur Amphetamine Screen POSITIVE (NEGATIVE) H 02/01/17 13:18 U Methamphetamines Scrn NEGATIVE (NEGATIVE) 02/01/17 13:18 U Benzodiazepines Scrn POSITIVE (NEGATIVE) H 02/01/17 13:18 Urine Cocaine Screen NEGATIVE (NEGATIVE) 02/01/17 13:18 U Cannabinoids Screen NEGATIVE (NEGATIVE) 02/01/17 13:18 Ethyl Alcohol < 5.0 mg/dL 02/01/17 13:23 - Procedures Procedures: Procedures RETROGRADE PYELOGRAM (04/02/13) TU REMOV URETER OBSTRUCT (04/02/13)
[2017-02-05] MEDS ORDERED: HYDROmorphone 0.5 MG/0.5 ML SYRINGE IVP PRN (15:25)
[2017-02-05] MEDS: SODIUM CHLORIDE 0.9% 1,000 ML IV SCH (16:54)
--- NOTE | 2017-02-05 19:18 | Ultrasound Preliminary Report ---
Exam: US DUPLEX EXT VEINS LEFT IMPRESSION: 1. No evidence for deep venous thrombosis. 2. There appears to be a small left knee joint effusion measuring 2.2 x 0.5 cm. [facility] SITE ID: [id number]
--- NOTE | 2017-02-05 19:20 | Ultrasound Report ---
EXAM: LEFT LOWER EXTREMITY VENOUS ULTRASOUND EXAM DATE: 02/05/2017 05:15 PM. CLINICAL HISTORY: Left lateral thigh and left calf pain, rule out DVT. COMPARISON: None. TECHNIQUE: Real-time sonographic vascular imaging was performed by the automation machine builder through the lower extremity utilizing both color-flow and Doppler spectral analysis. Multiple school admissions representative static manny ges were saved for review. FINDINGS: Common Femoral Vein (CFV): Normal. CFV-GSV Junction: Normal. Profunda Femoral Vein (PFV): Normal. Femoral Vein (FV) Prox: Normal. Femoral Vein (FV) Mid: Normal. Femoral Vein (FV) Dist: Normal. Popliteal Vein: Normal. Posterior Tibial Veins: Normal. Peroneal Veins: Normal. Other: There appears to be a small left knee joint effusion measuring 2.2 x 0.5 cm IMPRESSION: 1. No evidence for deep venous thrombosis. 2. There appears to be a small left knee joint effusion measuring 2.2 x 0.5 cm. [facility] Referring Provider Line: [phone] SITE ID: [id number]
[2017-02-05] MEDS ORDERED: cloNIDine 0.1 MG TABLET PO SCH (21:00)
[2017-02-05] MEDS: FLUoxetine 10 MG CAPSULE PO SCH (21:02)
[2017-02-05] MEDS: cloNIDine 0.1 MG TABLET PO SCH (21:02)
[2017-02-05 22:14] LABS: BILIRUBIN,URINE NEGATIVE (NEGATIVE)
[2017-02-05 22:38] LABS: UR CULTURE IF IND NOT INDICATED; WBC,URINE 0-3 /HPF (0-5)
[2017-02-06] MEDS: SODIUM CHLORIDE 0.9% 1,000 ML IV SCH (04:59)
[2017-02-06] MEDS: SODIUM CHLORIDE FLUSH 0.9% 10 ML SYRINGE IVP SCH ×3 (05:02→21:09)
[2017-02-06] MEDS: guaiFENesin/DEXTROMETHORPHAN 10 ML UDC PO PRN (05:41)
[2017-02-06] MEDS: BENZOCAINE/MENTHOL LOZENGE MM PRN (05:41)
[2017-02-06] MEDS ORDERED: ACETAMINOPHEN 1,000 MG/100 ML 100 ML IV PRN (08:35)
[2017-02-06] MEDS: FLUoxetine 10 MG CAPSULE PO SCH ×2 (08:42→21:08)
--- NOTE | 2017-02-06 12:13 | PROVIDER PROGRESS NOTE ---
Assessment/Plan - Problem List (1) Drug overdose Qualifiers: Encounter type: subsequent encounter Injury intent: undetermined intent Qualified Code(s): T50.904D - Poisoning by unspecified drugs, medicaments and biological substances, undetermined, subsequent encounter Assessment/Plan: Pt is once again medically clear to be transferred to inpatient psychaitric hospital, voluntarily. (2) Flank pain, acute Assessment/Plan: Improved. This is her recurrent problem with passing kidney stones. I advised the pt to remain hydrated, to decrease episodes as much as possible. (3) Nausea & vomiting Assessment/Plan: Resolved. (4) Leg pain, left Assessment/Plan: No DVT found. Symptoms sound more positional. (5) Depression Assessment/Plan: Patient's home meds were all restarted: Prozac for depression and with Clonidine po at hs for anxiety (nightmares), she was able to get a good night's sleep and appears more refreshed today. Her Phentermine and Lamotrigine for weight loss were not restarted. The patient admitted to me yesterdy that the Concerta and Adderall were for other family members but she "grabbed them all and put them in her bag when she was coming to the ER." THESE 2 SHOULD NOT BE ON HER MED LIST. - Current Meds Current Meds: Current Medications Generic Name Dose Route Start Last Admin Trade Name Freq PRN Reason Stop Dose Admin Albuterol 2.5 mg 02/04/17 05:22 02/05/17 02:00 INH 2.5 mg RTQ4H PRN Administration Wheezing Clonidine HCl 0.1 mg 02/05/17 21:00 02/05/17 21:02 Catapres PO 0.1 mg QPM OPAL Administration Fluoxetine HCl 20 mg 02/05/17 21:00 02/06/17 08:42 Prozac PO 20 mg BID OPAL Administration Guaifenesin 10 ml 02/05/17 03:02 02/06/17 05:41 Robitussin Dm PO 10 ml Q6HR PRN Administration Cough Acetaminophen 100 mls @ 400 mls/hr 02/06/17 08:35 02/06/17 09:49 Ofirmev IV Infused Q6HR PRN Infusion PAIN Ondansetron HCl 4 mg 02/01/17 16:08 02/05/17 13:23 Zofran Inj IVP 4 mg Q6HR PRN Administration Nausea / Vomiting Sodium Chloride 10 ml 02/01/17 16:08 02/05/17 04:30 Normal Saline Flush 0.9% IVP 10 ml PRN PRN Administration NEEDED PER PROVIDER ORDERS Sodium Chloride 10 ml 02/01/17 22:00 02/06/17 05:02 Normal Saline Flush 0.9% IVP Not Given Q8HR OPAL Throat Lozenges 1 lozenge 02/05/17 01:31 02/06/17 05:41 Cepacol MM 1 lozenge Q2HR PRN Administration Throat pain - Lab Result Fish Bone Diagrams: 02/03/17 06:25 02/04/17 05:11 - Additional Planning My Orders: My Active Orders 02/05/17 15:25 HYDROmorphone INJ SYRINGE [Dilaudid Inj Syringe] 0.5 mg IVP Q2H PRN 02/05/17 15:27 Strain All Urine [RC] PRN 02/05/17 21:00 FLUoxetine [PROzac] 20 mg PO BID cloNIDine [Catapres] 0.1 mg PO QPM 02/06/17 08:35 Acetaminophen 1,000 mg/100 ml [Ofirmev] 100 ml IV Q6HR Subjective - Subjective Patient Reports: Feeling Better Nursing Reports: Other (Able to drink 500 cc fluids Feels well enough to take a shower) Objective Vital Signs: Vital Signs - 24 hr 02/05/17 02/05/17 02/06/17 19:50 20:06 05:20 Temperature 36.8 C 36.9 C Heart Rate 68 Heart Rate [ 65 Brachial] Heart Rate [ 69 Monitoring electrodes] Respiratory 16 16 20 Rate Blood Pressure 140/81 H 123/78 [Left Brachial artery] O2 Saturation 98 97 02/06/17 09:00 Temperature Heart Rate Heart Rate [ Brachial] Heart Rate [ Monitoring electrodes] Respiratory Rate Blood Pressure 130/84 H [Left Brachial artery] O2 Saturation Oxygen O2 Source Room air I&O (Last 24 Hrs): Intake and Output Totals x24h 02/04/17 02/05/17 02/06/17 23:59 23:59 23:59 Intake Total 990 1920 2040 Output Total 830 700 Balance 990 1090 1340 General: Alert, Oriented x3 HEENT: Mucous membr. moist/pink Neck: Supple Cardiovascular: Regular rate, No murmurs Respiratory: No respiratory distress Abdomen: Soft Extremities: No edema - Results Results: Laboratory Results WBC 12.2 x10^3/uL (4.8-10.8) H 02/03/17 06:25 RBC 4.10 10^6/uL (4.20-5.40) L 02/03/17 06:25 Hgb 12.4 g/dL (12.0-16.0) 02/03/17 06:25 Hct 37.1 % (37.0-47.0) 02/03/17 06:25 MCV 90.6 fL (81.0-99.0) 02/03/17 06:25 MCH 30.2 pg (27.0-31.0) 02/03/17 06:25 MCHC 33.3 g/dL (32.0-36.0) 02/03/17 06:25 RDW 12.7 % (12.0-15.0) 02/03/17 06:25 Plt Count 292 10^3/uL (130-450) 02/03/17 06:25 MPV 6.7 fL (7.9-10.8) L 02/03/17 06:25 Neut # 9.1 10^3/uL (1.5-6.6) H 02/03/17 06:25 Lymph # 1.6 10^3/uL (1.5-3.5) 02/03/17 06:25 Williams # 1.3 10^3/uL (0.0-1.0) H 02/03/17 06:25 Eos # 0.2 10^3/uL (0.0-0.7) 02/03/17 06:25 Baso # 0.0 10^3/uL (0.0-0.1) 02/03/17 06:25 Absolute Nucleated RBC 0.00 x10^3/uL 02/03/17 06:25 Nucleated RBC % 0.0 /100WBC 02/03/17 06:25 Sodium 138 mmol/L (135-145) 02/04/17 05:11 Potassium 3.6 mmol/L (3.5-5.0) 02/04/17 05:11 Chloride 107 mmol/L (101-111) 02/04/17 05:11 Carbon Dioxide 23 mmol/L (21-32) 02/04/17 05:11 Anion Gap 8.0 (6-13) 02/04/17 05:11 BUN 7 mg/dL (6-20) 02/04/17 05:11 Creatinine 0.6 mg/dL (0.4-1.0) 02/04/17 05:11 Estimated GFR (MDRD) 116 (>89) 02/04/17 05:11 Glucose 110 mg/dL (70-100) H 02/04/17 05:11 Calcium 8.5 mg/dL (8.5-10.3) 02/04/17 05:11 Magnesium 1.8 mg/dL (1.7-2.8) 02/02/17 05:41 Total Bilirubin 0.9 mg/dL (0.2-1.0) 02/01/17 13:23 AST 27 IU/L (10-42) 02/01/17 13:23 ALT 36 IU/L (10-60) 02/01/17 13:23 Alkaline Phosphatase 58 IU/L (42-121) 02/01/17 13:23 Total Protein 6.8 g/dL (6.7-8.2) 02/01/17 13:23 Albumin 3.8 g/dL (3.2-5.5) 02/01/17 13:23 Globulin 3.0 g/dL (2.1-4.2) 02/01/17 13:23 Albumin/Globulin Ratio 1.3 (1.0-2.2) 02/01/17 13:23 Lipase 28 U/L (22-51) 02/01/17 13:23 Urine Color YELLOW 02/05/17 21:40 Urine Clarity HAZY (CLEAR) 02/05/17 21:40 Urine pH 6.0 PH (5.0-7.5) 02/05/17 21:40 Ur Specific [place] 1.015 (1.002-1.030) 02/05/17 21:40 Urine Protein NEGATIVE mg/dL (NEGATIVE) 02/05/17 21:40 Urine Glucose (UA) NEGATIVE mg/dL (NEGATIVE) 02/05/17 21:40 Urine Ketones NEGATIVE mg/dL (NEGATIVE) 02/05/17 21:40 Urine Occult Blood SMALL (NEGATIVE) H 02/05/17 21:40 Urine Nitrite NEGATIVE (NEGATIVE) 02/05/17 21:40 Urine Bilirubin NEGATIVE (NEGATIVE) 02/05/17 21:40 Urine Urobilinogen 0.2 (NORMAL) E.U./dL (NORMAL) 02/05/17 21:40 Ur Leukocyte Esterase NEGATIVE (NEGATIVE) 02/05/17 21:40 Urine RBC 0-5 /HPF (0-5) 02/05/17 21:40 Urine WBC 0-3 /HPF (0-5) 02/05/17 21:40 Ur Squamous Epith Cells MOD Squamous (<= Few) H 02/05/17 21:40 Urine Bacteria None Seen /HPF (None Seen) 02/05/17 21:40 Ur Microscopic Review NOT INDICATED 02/01/17 13:18 Urine Culture Comments NOT INDICATED 02/05/17 21:40 Urine HCG, Qual NEGATIVE 02/01/17 13:18 Salicylates < 6.0 mg/dL 02/01/17 13:23 Urine Opiates Screen POSITIVE (NEGATIVE) H 02/01/17 13:18 Ur Oxycodone Screen NEGATIVE (NEGATIVE) 02/01/17 13:18 Urine Methadone Screen NEGATIVE (NEGATIVE) 02/01/17 13:18 Ur Propoxyphene Screen NEGATIVE (NEGATIVE) 02/01/17 13:18 Acetaminophen < 10 ug/mL (10-30) L 02/01/17 13:23 Ur Barbiturates Screen NEGATIVE (NEGATIVE) 02/01/17 13:18 Ur Tricyclics Screen POSITIVE (NEGATIVE) H 02/01/17 13:18 Ur Phencyclidine Scrn NEGATIVE (NEGATIVE) 02/01/17 13:18 Ur Amphetamine Screen POSITIVE (NEGATIVE) H 02/01/17 13:18 U Methamphetamines Scrn NEGATIVE (NEGATIVE) 02/01/17 13:18 U Benzodiazepines Scrn POSITIVE (NEGATIVE) H 02/01/17 13:18 Urine Cocaine Screen NEGATIVE (NEGATIVE) 02/01/17 13:18 U Cannabinoids Screen NEGATIVE (NEGATIVE) 02/01/17 13:18 Ethyl Alcohol < 5.0 mg/dL 02/01/17 13:23 - Procedures Procedures: Procedures RETROGRADE PYELOGRAM (04/02/13) TU REMOV URETER OBSTRUCT (04/02/13)
[2017-02-06] MEDS: cloNIDine 0.1 MG TABLET PO SCH (21:08)
[2017-02-06] MEDS: oxyCODONE 5 MG TABLET PO PRN (22:32)
[2017-02-07] MEDS: SODIUM CHLORIDE FLUSH 0.9% 10 ML SYRINGE IVP SCH (00:36)
[2017-02-07] MEDS: guaiFENesin/DEXTROMETHORPHAN 10 ML UDC PO PRN (02:46)
[2017-02-07] MEDS: BENZOCAINE/MENTHOL LOZENGE MM PRN (02:46)
[2017-02-07] MEDS: oxyCODONE 5 MG TABLET PO PRN (03:07)
[2017-02-07] MEDS ORDERED: ACETAMINOPHEN 325 MG TABLET PO PRN (07:57)
[2017-02-07] MEDS: FLUoxetine 10 MG CAPSULE PO SCH (08:16)
--- NOTE | 2017-02-07 10:20 | Discharge Plan ---
Discharge Plan Disposition: [facility]/Unit DC/Xfer Condition: Good Diet: Regular Activity Restrictions: Activity as Tolerated Shower Restrictions: No Driving Restrictions: No Additional Instructions or Follow Up instructions: You were admitted to the hospital because of a drug overdose of multiple medications. This left you unconscious, sedated, and at risk for breathing difficulties. We observed you and treated you with IV fluids and just expectant watching O. You woke up, and were back to baseline but you developed 2 episodes of kidney stones being passed. Those are resolved. You have a previous history that is well known and documented of kidney stones. When you leave your treatment facility, please make sure that you follow-up with your primary care provider and whatever provider they wish you to see. No Smoking: If you smoke, Please STOP! Call for help. Follow-up with: Willie Harris MD [Primary Care Provider] -
[2017-02-07 17:31] VITALS: BP 152/89
--- NOTE | 2017-02-08 09:05 | DISCHARGE SUMMARY ---
DATE OF ADMISSION: 02/02/2017 DATE OF DISCHARGE: 02/07/2017 PR[facility] CARE PROVID[place] [facility] DISCHARGE DIAGNOSES 1. Intentional drug overdose, polysubstance. 2. Renal colic. 3. Nephrolithiasis. 4. Depression with anxiety. DISCHARGE MEDICATIONS 1. ProAir inhaler 2 puffs every 4 hours as needed. 2. Lipitor 40 mg daily. 3. Cetirizine 10 mg daily. 4. Clonidine 0.2 mg at night. 5. Fluoxetine 40 mg daily. 6. Lamictal 200 mg daily. 7. Lorazepam 2 mg tablet, 2-3 tablets as needed for anxiety. 8. Phenazopyridine 97.5 mg p.o. daily p.r.n. urinary pain. 9. Inderal 20 mg daily. PRINCIPAL PROCEDURES 1. CT of the head, which was negative. 2. Renal ultrasound showing small calcium deposits, possibly nephrolithiasis. 3. Left leg venous Doppler showing no DVT and a small knee effusion. HOSPITAL COURSE: She is a 31-year-old female who is the midst of a bitter [facility] and her . She had an attempt of intentional drug overdose with clonidine in 2016. The custody crook continues. She received a restraining order from her and had no cont act with family after that. She was found down on the day of admission. She may have been taking the drugs over the course of the day. Medications that were found were Concerta and Adderall, which are h er children's drugs; Ativan, which are a pet's drug; and urine tox screen was positive for opiates, t ricyclics, amphetamines, and benzodiazepines. Ethyl alcohol was less than 5, acetaminophen less than 10, and salicylate less than 6. Written all over her body were statements made in black marker that s he wrote on herself. Things such as "fat pig, slut, worthless cunt." Initial evaluation showed her to be quite comatose. She was normotensive, oxygenating well, just unre sponsive. CT of the head was negative. She was placed in the hospital for the drug overdose, and [facility] was contacted. Within 24-36 hours, the patient was now alert and able to eat; however, she has a history of nephrolithiasis and began having flank pain with kidney stones being passed. When s he gets kidney stones, she gets nausea and vomiting and that needed to be controlled. Depression with anxiety was treated by resuming her usual outpatient medications. She did have an epi sode of left leg pain and, because she has been in the hospital and was not ambulatory for several da ys, a left leg venous Doppler was done and was negative. On the day of discharge, the patient has not had any flank pain for close to 24 hours. PHYSICAL EXAMINATION On discharge exam: VITAL SIGNS: She had a temperature 37, pulse 75, blood pressure 134/74, respirations 18, and 97% on r oom air. GENERAL: She is a short, stocky, young white female who looks stated age, is in no acute distress, wh o is alert and oriented to person, place, and time. Following 2-step commands. Would like to be volun tarily admitted for inpatient psych and treatment. NECK: Supple, without any lymphadenopathy. LUNGS: Clear to auscultation and percussion. When she gets up and walks around the room, there is no increased respiratory effort. HEART: She has a regular rate and rhythm. No murmurs, rubs, or gallops. ABDOMEN: Soft, nontender, normal bowel sounds. No masses. EXTREMITIES: Feet have no edema. NEUROLOGIC: She is alert, oriented to person, place, and time. Follows 2-step commands. She has no fo jeyson deficits, no tremors. No cognitive delay. CONDITION: She is discharged in stable condition DISCHARGE TIME: Greater than 30 minutes was spent in coordinating discharge. JOB #: [id number] EXT JOB #:[id number]
== END 2017-02-07 18:20 | DRG 917 ==
LOC: EDUNIT# → ED 12:50 → OBS 16:08 → MS3 17:25 → OBSVTOIN 02-02 18:03
PROVIDERS: ADMIT Specialist; ATTEND Specialist
DX: T50.902A Poisoning by unspecified drugs, medicaments and biological substances, intentional self-harm, initial encounter (principal); G92 Toxic encephalopathy; N20.0 Calculus of kidney; I95.9 Hypotension, unspecified; I10 Essential (primary) hypertension; E78.5 Hyperlipidemia, unspecified; F41.8 Other specified anxiety disorders; M79.605 Pain in left leg; F43.10 Post-traumatic stress disorder, unspecified; E66.3 Overweight; Z62.810 Personal history of physical and sexual abuse in childhood; Z91.5 Personal history of self-harm; Z63.5 Disruption of family by separation and divorce; Z68.33 Body mass index [BMI] 33.0-33.9, adult
CPT/HCPCS: 36415; 51702; 70450; 76775; 80048; 80053; 80306; 80307; 80320; 80329; 81001; 81003; 81025; 83690; 83735; 85025; 87086; 93005; 94640; 96360; 96361; 99285

== ENCOUNTER 2017-02-21 12:22 | Outpatient (CLI) | payer OTHER | END 2017-02-21 12:23 | disposition critical access hospital (66) | LOC: EMS 12:22 | PROVIDERS: ATTEND Surgery | DX: R40.20 Unspecified coma (principal) | CPT/HCPCS: A0425; A0427 ==

== ENCOUNTER 2017-02-21 12:25 | Inpatient (IN) | payer OTHER ==
[2017-02-21] MEDS ORDERED: SODIUM CHLORIDE 0.9% 1,000 ML IV SCH ×5 (12:45→16:22)
[2017-02-21] MEDS ORDERED: SUCCINYLCHOLINE 200 MG/10 ML VIAL IVP STA (12:52)
[2017-02-21 13:00] LABS: VBG BASE EXCESS -1.8 mmol/L (-2 - +2); VBG OXYGEN SATURATION 97.6 % (60-80); VBG PH 7.344 (7.31-7.41); VBG TOTAL CO2 25.6 mmol/L (24-29)
[2017-02-21 13:04] LABS: BASOPHILS # (AUTO) 0.1 10^3/uL (0.0-0.1); BASOPHILS % (AUTO) 0.5 %; EOSINOPHILS # (AUTO) 0.1 10^3/uL (0.0-0.7); EOSINOPHILS % (AUTO) 0.7 %; HCT - HEMATOCRIT 39.3 % (37.0-47.0); HGB - HEMOGLOBIN 13.5 g/dL (12.0-16.0); LYMPHOCYTES # (AUTO) 1.4 10^3/uL (1.5-3.5); LYMPHOCYTES % (AUTO) 13.3 %; MEAN CORPUSCULAR HEMOGLOBIN 30.6 pg (27.0-31.0); MEAN CORPUSCULAR HGB CONC 34.4 g/dL (32.0-36.0); MEAN PLATELET VOLUME 6.7 fL (7.9-10.8); MONOCYTES # (AUTO) 0.6 10^3/uL (0.0-1.0); MONOCYTES % (AUTO) 5.9 %; NEUTROPHILS # (AUTO) 8.4 10^3/uL (1.5-6.6); NEUTROPHILS % (AUTO) 79.6 %; RED BLOOD COUNT 4.41 10^6/uL (4.20-5.40); UNCORRECTED WHITE BLOOD COUNT 10.6 x10^3/uL; WHITE BLOOD COUNT 10.6 x10^3/uL (4.8-10.8)
[2017-02-21 13:09] LABS: ALBUMIN/GLOBULIN RATIO 1.3 (1.0-2.2); BILIRUBIN,TOTAL 0.9 mg/dL (0.2-1.0); BUN - BLOOD UREA NITROGEN 11 mg/dL (6-20); CALCIUM 9.1 mg/dL (8.5-10.3); CARBON DIOXIDE - CO2 23 mmol/L (21-32); CHLORIDE 102 mmol/L (101-111); CREATININE 0.9 mg/dL (0.4-1.0); GFR - MDRD 73 (>89); GLUCOSE 251 mg/dL (70-100); POTASSIUM 3.9 mmol/L (3.5-5.0); SALICYLATE < 6.0 mg/dL; SODIUM 137 mmol/L (135-145)
[2017-02-21] MEDS ORDERED: SUCCINYLCHOLINE 200 MG/10 ML VIAL ONE (13:13)
[2017-02-21 13:15] LABS: ACETAMINOPHEN < 10 ug/mL (10-30)
[2017-02-21] MEDS ORDERED: fentaNYL 100 MCG/2 ML VIAL IVP STA (13:15)
[2017-02-21] MEDS ORDERED: VECURONIUM 10 MG VIAL IVP STA (13:15)
[2017-02-21] MEDS ORDERED: MIDAZOLAM 2 MG/2 ML VIAL IVP ONE (13:15)
--- NOTE | 2017-02-21 13:22 | ED Physician Documentation ---
PD HPI ALTERED MENTAL STATUS - Stated complaint Stated Complaint: ALOC - Chief complaint Chief Complaint: Neuro - History obtained from History obtained from: EMS - Additional information Additional information: Patient found in the hospital parking lot in her parked car unresponsive.Per staff patient has a history of frequent visits to the emergency department for suicidality and history of overdose. Patient found with Empty bottles of propanolol and clonidine and Seroquel. Given 1.2mg IV narcane without change in mental status. Clonidine 0.2 quantity 30 was filled on February 16 and propanolol 10 mg quantity 60 was filled September, Seroquel 50 mg quantity 90 was filled on February 16. Review of Systems Unable to obtain: Unresponsive PD PAST MEDICAL HISTORY - Past Medical History Cardiovascular: High cholesterol Respiratory: Asthma, Pneumonia Neuro: Headache/migraine Endocrine/Autoimmune: HyPOthyroidism : Chronic bladder infection, Kidney stones HEENT: None Derm: None - Past Surgical History Past Surgical History: Yes HEENT: Tonsil/Adenoidectomy - Present Medications Home Medications: Ambulatory Orders Medication Instructions Recorded Confirmed cloNIDine [Catapres] 0.2 mg PO QPM 05/22/15 02/21/17 Propranolol [Inderal] 20 mg PO DAILY 02/01/17 02/21/17 Albuterol Sulfate [Proair Hfa 2 puffs INH Q4H PRN 02/02/17 02/21/17 Inhaler] Atorvastatin Calcium 40 mg PO QPM 02/02/17 02/21/17 Cetirizine [ZyrTEC] 10 mg PO DAILY PRN 02/02/17 02/21/17 Fluoxetine HCl 40 mg PO DAILY 02/02/17 02/21/17 Lorazepam [Ativan] 5 - 6 mg PO PRN PRN 02/02/17 02/21/17 Phenazopyridine HCl [Urinary Pain 97.5 mg PO PRN PRN 02/02/17 02/21/17 Relief] lamoTRIgine [Lamictal] 200 mg PO DAILY 02/02/17 02/21/17 - Allergies Allergies/Adverse Reactions: Allergies Allergy/AdvReac Type Severity Reaction Status Date / Time sulfamethoxazole AdvReac Intermediate Emesis Verified 01/30/17 13:02 [From Bactrim] trimethoprim [From Bactrim] AdvReac Intermediate Emesis Verified 01/30/17 13:02 cilantro Allergy Respiratory Uncoded 01/30/17 13:02 - Social History Does the pt smoke?: No Smoking Status: Never smoker Does the pt drink ETOH?: Yes Does the pt have substance abuse?: No - Immunizations Immunizations are current?: Yes Immunizations: TDAP current <10years - POLST Patient has POLST: Yes PD ED PE NORMAL - General General: Other (Unresponsive to painful stimuli) - HEENT HEENT: Atraumatic - Cardiac Cardiac: RRR - Respiratory Respiratory: Clear bilaterally, Other (shallow breaths) - Abdomen Abdomen: Soft - Back Back: Other (no evidence of trauma) - Derm Derm: Warm and dry, No rash, Other (no evidence of trauma) - Extremities Extremities: No deformity - Neuro Neuro: Other (unresponsive) Eye Opening: None Motor: None Verbal: None GCS Score: 3 Results - Vitals Vitals: Vital Signs - 24 hr 02/21/17 02/21/17 02/21/17 12:25 12:31 13:35 Temperature 36.0 C L 36.5 C Heart Rate 71 69 77 Respiratory 18 14 26 H Rate Blood Pressure 84/51 L 80/49 L 88/56 L O2 Saturation 98 98 97 02/21/17 02/21/17 13:53 14:09 Temperature Heart Rate 64 63 Respiratory 16 16 Rate Blood Pressure 92/58 L 91/58 L O2 Saturation 98 98 Oxygen O2 Source Mechanical ventilator - EKG (time done) 1234 Rate: Rate (enter#), Other Ischemia: Normal ST segments, Other (baseline gives appearance of MADDIE interpreted by computer, on review none present ) 1516 Rhythm: Sinus bradycardia (57) Intervals: Prolonged QT, Other Ischemia: Normal ST segments Compare to prior EKG: Changed from prior EKG - Labs Labs: Laboratory Tests 02/21/17 02/21/17 02/21/17 12:30 12:30 12:30 WBC 10.6 RBC 4.41 Hgb 13.5 Hct 39.3 MCV 89.0 MCH 30.6 MCHC 34.4 RDW 13.0 Plt Count 367 MPV 6.7 L Neut # 8.4 H Lymph # 1.4 L Todd # 0.6 Eos # 0.1 Baso # 0.1 Absolute Nucleated RBC 0.00 Nucleated RBC % 0.0 Bld Gas Analysis Time Sample Site ABG pH ABG pCO2 ABG pO2 ABG HCO3 ABG Total CO2 ABG O2 Saturation ABG Base Excess Igor Test VBG pH VBG pCO2 VBG pO2 VBG HCO3 VBG Total CO2 VBG O2 Saturation VBG Base Excess VBG Total Hgb VBG Oxyhemoglobin VBG Carboxyhemoglobin VBG Methemoglobin Respiration Rate Vent Mode FiO2 Tidal Volume PEEP Pressure Support Vent Sodium 137 Potassium 3.9 Chloride 102 Carbon Dioxide 23 Anion Gap 12.0 BUN 11 Creatinine 0.9 Estimated GFR (MDRD) 73 L Glucose 251 H Lactic Acid 1.9 Calcium 9.1 Total Bilirubin 0.9 AST 22 ALT 33 Alkaline Phosphatase 59 Total Protein 7.0 Albumin 4.0 Globulin 3.0 Albumin/Globulin Ratio 1.3 Salicylates < 6.0 Urine Opiates Screen Ur Oxycodone Screen Urine Methadone Screen Ur Propoxyphene Screen Acetaminophen < 10 L Ur Barbiturates Screen Ur Tricyclics Screen Ur Phencyclidine Scrn Ur Amphetamine Screen U Methamphetamines Scrn U Benzodiazepines Scrn Urine Cocaine Screen U Cannabinoids Screen Ethyl Alcohol < 5.0 02/21/17 02/21/17 02/21/17 12:30 12:50 14:05 WBC RBC Hgb Hct MCV MCH MCHC RDW Plt Count MPV Neut # Lymph # Todd # Eos # Baso # Absolute Nucleated RBC Nucleated RBC % Bld Gas Analysis Time 1410 Sample Site RIGHT RADIAL ABG pH 7.37 ABG pCO2 36 ABG pO2 88 ABG HCO3 20.2 L ABG Total CO2 21.3 ABG O2 Saturation 97 ABG Base Excess -4.5 L Igor Test POSITIVE VBG pH 7.344 VBG pCO2 45.4 VBG pO2 105.2 H VBG HCO3 24.2 VBG Total CO2 25.6 VBG O2 Saturation 97.6 H VBG Base Excess -1.8 VBG Total Hgb VBG Oxyhemoglobin VBG Carboxyhemoglobin VBG Methemoglobin Respiration Rate 16 Vent Mode SIMV FiO2 0.35 Tidal Volume 450 PEEP 5 Pressure Support Vent 10 Sodium Potassium Chloride Carbon Dioxide Anion Gap BUN Creatinine Estimated GFR (MDRD) Glucose Lactic Acid Calcium Total Bilirubin AST ALT Alkaline Phosphatase Total Protein Albumin Globulin Albumin/Globulin Ratio Salicylates Urine Opiates Screen NEGATIVE Ur Oxycodone Screen NEGATIVE Urine Methadone Screen NEGATIVE Ur Propoxyphene Screen NEGATIVE Acetaminophen Ur Barbiturates Screen NEGATIVE Ur Tricyclics Screen POSITIVE H Ur Phencyclidine Scrn NEGATIVE Ur Amphetamine Screen NEGATIVE U Methamphetamines Scrn NEGATIVE U Benzodiazepines Scrn POSITIVE H Urine Cocaine Screen NEGATIVE U Cannabinoids Screen NEGATIVE Ethyl Alcohol 02/21/17 14:27 WBC RBC Hgb Hct MCV MCH MCHC RDW Plt Count MPV Neut # Lymph # Todd # Eos # Baso # Absolute Nucleated RBC Nucleated RBC % Bld Gas Analysis Time Sample Site ABG pH ABG pCO2 ABG pO2 ABG HCO3 ABG Total CO2 ABG O2 Saturation ABG Base Excess Igor Test VBG pH VBG pCO2 VBG pO2 VBG HCO3 VBG Total CO2 VBG O2 Saturation VBG Base Excess VBG Total Hgb 10.7 L VBG Oxyhemoglobin 97 VBG Carboxyhemoglobin 0.3 VBG Methemoglobin 0.4 Respiration Rate Vent Mode FiO2 Tidal Volume PEEP Pressure Support Vent Sodium Potassium Chloride Carbon Dioxide Anion Gap BUN Creatinine Estimated GFR (MDRD) Glucose Lactic Acid Calcium Total Bilirubin AST ALT Alkaline Phosphatase Total Protein Albumin Globulin Albumin/Globulin Ratio Salicylates Urine Opiates Screen Ur Oxycodone Screen Urine Methadone Screen Ur Propoxyphene Screen Acetaminophen Ur Barbiturates Screen Ur Tricyclics Screen Ur Phencyclidine Scrn Ur Amphetamine Screen U Methamphetamines Scrn U Benzodiazepines Scrn Urine Cocaine Screen U Cannabinoids Screen Ethyl Alcohol - Rads (name of study) chest xray Radiology: Other (Mild hazy prominence of lung markings no localized infiltrate consolidation effusion or pneumothorax ETT tip 2.5 cm above jm) head ct Radiology: Final report received, Other (No significant interval change. Continued right maxillary sinusitis. Otherwise negative.) Procedures - Intubation Provider: Emergency physician Medications: Succinylcholine, Other (none required) Blade: Glidescope Tube: Size-enter number (7.5), Cuffed Route: Oral Confirmation: Direct visualization, Bilateral breath sounds, End tidal CO2, Pulse ox, Chest xray Complications: No compications PD MEDICAL DECISION MAKING - ED course ED course: 31-year-old female with significant psychiatric history presents to the emergency department after being found unresponsive in her vehicle. Most likely culprits for her overdose are Seroquel, clonidine, and while there were no bottles with her she does have a history of taking Ativan. Patient does not have a history of IV drug abuse did not respond to Narcan. Head CT was ordered, she was intubated for airway protection given her GCS of 3. She had mild hypotension with a map greater than 60, she did not have bradycardia however do not feel that her clonidine is the major source of her overdose Approximately 2:45 PM discussed patient's case with Dr. Nieto who agrees to admit patient to the ICU for further monitoring. - Consults Consults: Discussed case with (poison control, Valeri ), Other (supportive care , keep magnesium and potassium within normal range. Expect clonidine effects early, anticholinergic effects may occur with seroquel ) - Critical Care Time(min): 30 Comments: Overdose with hypotension and depressed mental status requiring Frequent reassessments and interventions Time Includes: Direct patient care, Reassess patient, Document care, Coordinate care, Medical consult Data interpretation: Labs, Pulse ox, ABG Procedures included in critical care time: Ventilator mgmt Procedures excluded from critical care time: Intubation Departure - Departure Disposition: [facility] DC/Xfer
[2017-02-21] MEDS ORDERED: MIDAZOLAM 2 MG/2 ML VIAL ONE (13:30)
[2017-02-21] MEDS ORDERED: VECURONIUM 10 MG VIAL ONE (13:32)
[2017-02-21] MEDS ORDERED: fentaNYL 100 MCG/2 ML VIAL ONE (13:32)
--- NOTE | 2017-02-21 13:42 | XRAY Report ---
EXAM: CHEST RADIOGRAPHY EXAM DATE: 02/21/2017 01:29 PM. CLINICAL HISTORY: Tube placement. COMPARISON: 06/11/2014. TECHNIQUE: 1 view. FINDINGS: Lungs/Pleura: Mild hazy prominence of lung markings. No localized infiltrate, consolidation, effusion , or pneumothorax. Mediastinum: Normal heart size. Upper lobe vessels not distended. Other: Endotracheal tube tip at level of mid aortic arch about 2.5 cm above jm. IMPRESSION: ETT tip 2.5 cm above jm. [facility] Referring Provider Line: [phone] SITE ID: [id number]
--- NOTE | 2017-02-21 13:59 | CT Preliminary Report ---
Exam: CT HEAD W/O IMPRESSION: No significant interval change. Continued right maxillary sinusitis. Otherwise negative. [facility] SITE ID: [id number]
--- NOTE | 2017-02-21 14:02 | CT Report ---
EXAM: CT HEAD EXAM DATE: 02/21/2017 01:52 PM. CLINICAL HISTORY: Altered mental status. COMPARISON: 01/30/2017. TECHNIQUE: Multiaxial CT images were obtained from the foramen magnum to the vertex. Reformats: Coron al. IV contrast: None. In accordance with CT protocol optimization, one or more of the following dose reduction techniques w ere utilized for this exam: automated exposure control, adjustment of mA and/or KV based on patient s ize, or use of iterative reconstructive technique. FINDINGS: Parenchyma: No intraparenchymal hemorrhage. No evidence of mass, midline shift, or CT findings of inf arction. Escobar-white differentiation is distinct. Extraaxial Spaces: Normal for age. No subdural or epidural collections. Ventricles: Normal in size and position. Sinuses and Orbits: Continued opacification of right maxillary sinus. Other visualized sinuses appear clear. Bones: Unremarkable. Other: None. IMPRESSION: No significant interval change. Continued right maxillary sinusitis. Otherwise negative. [facility] Referring Provider Line: [phone] SITE ID: [id number]
[2017-02-21 14:15] LABS: ABG ANALYSIS TIME 1410; ABG HCO3 20.2 mmol/L (22.0-26.0); ABG PCO2 36 mmHg (34-45); ABG PH 7.37 (7.35-7.45); ABG PO2 88 mmHg (80-100); ABG TCO2 21.3 MMOL/L (21.0-29.0)
[2017-02-21 14:16] LABS: ABG BASE EXCESS -4.5 mmol/L (-2.0-3.0); ABG OXYGEN SATURATION 97 % (94-98); ABG SITE OF DRAW RIGHT RADIAL; ALLEN TEST POSITIVE
[2017-02-21 14:17] LABS: ABG MODE OF VENTILATION SIMV; ABG PEAK END EXPIRATORY PRESSU 5 cmH2O; ABG PRESSURE SUPPORT VENT 10 cmH2O; ABG RESPIRATORY RATE 16 b/min
[2017-02-21 14:42] LABS: METHEMOGLOBIN VENOUS 0.4 % (0-1.5)
[2017-02-21] MEDS ORDERED: ONDANSETRON ODT 4 MG TABLET TL PRN (14:44)
[2017-02-21] MEDS ORDERED: PROPOFOL 1000 MG/100 ML 100 ML IV SCH (15:00)
--- NOTE | 2017-02-21 15:08 | HISTORY & PHYSICAL EXAMINATION ---
Chief Complaint - Chief Complaint Chief Complaint: Found unconscious in her car in the parking lot History of Present Illness - Admitted From Admitted From:: Emergency room - History Obtained From Records Reviewed: [facility] History obtained from: Emergency room physician, Dr. Eric Exam Limitations: Patient is intubated and unconscious - History of Present Illness HPI Comment/Other: She is a 31-year-old white female who has a history of major depressive disorder , and multiple suicide attempts. She was just admitted to our facility in late January for a suicide attempt at that point in time. She was discharged to [facility]. We do not have any other knowledge of her psychiatric history after the discharge from [place]. She was found in her car, unconscious by a passerby. She is parked in the hospital parking lot. Bottles of Seroquel, clonidine, and propranolol are found in the car with her. She received Narcan on the scene, transferred to the emergency room. Because of a Anais Coma Scale of 3 she was intubated to protect her airway. CT of the head is negative. She is mildly hypotensive. But other lab work are normal. She is now admitted to the hospital, intubated, to the ICU to wait for the medications that she took to wear off and for her to regain consciousness. History - Past Medical History Cardiovascular: reports: Hypertension, High cholesterol Respiratory: reports: Asthma, Pneumonia Neuro: reports: Headache/migraine Endocrine/Autoimmune: reports: HyPOthyroidism TIMBER SPOTTER: reports: Other (G4, P20-2-2) : reports: Chronic bladder infection, Kidney stones HEENT: reports: None Psych: reports: Depression (With multiple suicide attempts) Derm: reports: None MRSA Hx?: No - Past Surgical History HEENT: reports: Tonsil/Adenoidectomy - Family & Social History Family History Comment/Other: Mom of a heart attack in her 50s. She was 30 something odd years younger than her . Father is alive in his 80s. The patient has up to 6 siblings with 3 different lives that were to her dad. She has 2 full siblings that are healthy. Her 2 sons are healthy. Living arrangement: At home Living Situation: Alone Social History Notes: She does not smoke. She rarely has alcohol abuse problems. 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 She is in the middle of divorce proceedings from her and is received a restraining order from him. 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 Abuse Issues: Perceptual Disturbance, Other (worsening impulsive behavior for suicide) Dependence: Experiences withdrawal or developed tolerances: NONE - POLST Patient has POLST: No POLST Status: Full Code Meds/Allgy - Home Medications Home Medications: Ambulatory Orders Medication Instructions Recorded Confirmed cloNIDine [Catapres] 0.2 mg PO QPM 05/22/15 02/21/17 Fluoxetine HCl 40 mg PO DAILY 02/02/17 02/21/17 Quetiapine Fumarate [Seroquel] 50 mg PO TID PRN 02/21/17 02/21/17 - Allergies Allergies/Adverse Reactions: Allergies Allergy/AdvReac Type Severity Reaction Status Date / Time sulfamethoxazole AdvReac Intermediate Emesis Verified 01/30/17 13:02 [From Bactrim] trimethoprim [From Bactrim] AdvReac Intermediate Emesis Verified 01/30/17 13:02 cilantro Allergy Respiratory Uncoded 01/30/17 13:02 Review of Systems - Other Findings Other Findings: At this time review of systems are unobtainable in this unconscious patient on a ventilator Exam - Vital Signs Reviewed Vital Signs: Yes Vital Signs: Vital Signs x48h Temp Pulse Resp BP Pulse Ox 02/21/17 14:09 63 16 91/58 L 98 02/21/17 13:53 64 16 92/58 L 98 02/21/17 13:35 36.5 C 77 26 H 88/56 L 97 02/21/17 12:31 69 14 80/49 L 98 02/21/17 12:25 36.0 C L 71 18 84/51 L 98 - Physical Exam General Appearance: positive: No acute distress, Other (Intubated and unresponsive) ENT: positive: No signs of dehydration Neck: positive: No JVD. negative: Carotid bruit Respiratory: positive: No respiratory distress, Other (Intubated). negative: Wheezes, Rales, Rhonchi Cardiovascular: positive: Regular rate & rhythm, Other (Hypotensive from 80s- 90s systolic). negative: Tachycardia, Bradycardia Peripheral Pulses: positive: 2+ Abdomen: positive: No organomegaly, No distention, Abnml bowel sounds (very hypoactive), Other (soft abdominal wall) Skin: positive: Warm, Dry, Pallor Extremities: positive: Nml appearance, No pedal edema. negative: Joint swelling Neurologic/Psychiatric: positive: Other (Intubated and unresponsive. did open eyes once and) Conclusion/Plan - Problem List (1) Drug overdose Conclusion/Plan: At this time the assumption is that she is taken Seroquel, clonidine, and propranolol. Those of the empty bottles in her car. Urine tox screen is positive for benzodiazepines and tricyclics. Negative for everything else including testing for salicylates and acetaminophen. She has not responded to Narcan so we do not presume opiate overdose. Plan: Continue to protect airway with intubation Continue to monitor for arrhythmias in the face of possible beta-giovanny or Seroquel overdose Await patient waking up and then extubate Check daily CBC and CMP my anticipation is greater than 2 midnights and less than 96 hours of for the care of this patient. Qualifiers: Encounter type: initial encounter Injury intent: intentional self-harm Qualified Code(s): T50.902A - Poisoning by unspecified drugs, medicaments and biological substances, intentional self-harm, initial encounter (2) Hyperglycemia Conclusion/Plan: No history of diabetes. Plan: Check A1c Check sliding scale, n.p.o. status (3) Airway clearance impairment Conclusion/Plan: As stated in problem #1, she is intubated. Will implement ventilatory protocol including proton pump inhibitor, daily chest x-rays, daily blood glasses, airway cleaning. She is intubated strictly to protect her airway, and I anticipate full recovery of lung function once more awake - Lab Results Fish Bones: 02/21/17 12:30 02/21/17 12:30 - Diagnostic Imaging Results Diagnostic Imaging Results: positive: Final report reviewed - EKG Results EKG Interpreted Independently: No EKG Comparison: Unchanged from prior EKG Issues/Core Measures - Anticipated LOS Anticipated Stay Length: 2 or more midnights - DVT/VTE - Prophylaxis VTE/DVT Device ordered at admit?: Yes
[2017-02-21] MEDS ORDERED: SODIUM CHLORIDE 0.9% 500 ML IV ONE (16:47)
[2017-02-21] MEDS: INSULIN REGULAR HUMAN 100 UNIT/1 ML 10 ML MDV SUBQ SCH ×2 (18:16→23:35)
[2017-02-21 20:33] LABS: ABG ANALYSIS TIME 2020; ABG PCO2 38 mmHg (34-45); ABG PH 7.31 (7.35-7.45)
[2017-02-21 20:35] LABS: ABG BASE EXCESS -6.7 mmol/L (-2.0-3.0); ABG HCO3 18.9 mmol/L (22.0-26.0); ABG OXYGEN SATURATION 99 % (94-98); ABG PO2 165 mmHg (80-100); ABG SITE OF DRAW RIGHT RADIAL; ABG TCO2 20.1 MMOL/L (21.0-29.0); ALLEN TEST POSITIVE
[2017-02-21 20:36] LABS: ABG MODE OF VENTILATION SIMV; ABG O2 DEVICE VENT; ABG PEAK END EXPIRATORY PRESSU 5 cmH2O; ABG PRESSURE SUPPORT VENT 10 cmH2O; ABG RESPIRATORY RATE 12 b/min; ABG SATURATION PULSE OXIMETRY% 100 %
[2017-02-21] MEDS ORDERED: CHLORHEXIDINE GLUCONATE 15 ML UDC PO SCH (21:00)
[2017-02-21] MEDS: SODIUM CHLORIDE FLUSH 0.9% 10 ML SYRINGE IVP SCH (23:34)
[2017-02-22] MEDS ORDERED: QUETIAPINE FUMARATE 50 MG PO PRN (02:16)
[2017-02-22] MEDS ORDERED: ALBUTEROL NEB 2.5 MG/3 ML INH PRN (02:16)
[2017-02-22 05:24] LABS: BASOPHILS % (AUTO) 0.2 %; EOSINOPHILS # (AUTO) 0.1 10^3/uL (0.0-0.7); HCT - HEMATOCRIT 36.7 % (37.0-47.0); LYMPHOCYTES # (AUTO) 1.5 10^3/uL (1.5-3.5); LYMPHOCYTES % (AUTO) 11.6 %; MEAN CORPUSCULAR HGB CONC 32.8 g/dL (32.0-36.0); MEAN CORPUSCULAR VOLUME 91.5 fL (81.0-99.0); MEAN PLATELET VOLUME 6.8 fL (7.9-10.8); MONOCYTES # (AUTO) 0.9 10^3/uL (0.0-1.0); MONOCYTES % (AUTO) 7.1 %; NEUTROPHILS # (AUTO) 10.2 10^3/uL (1.5-6.6); NEUTROPHILS % (AUTO) 80.1 %; RED BLOOD COUNT 4.01 10^6/uL (4.20-5.40); RED CELL DISTRIBUTION WIDTH 13.3 % (12.0-15.0); UNCORRECTED WHITE BLOOD COUNT 12.8 x10^3/uL; WHITE BLOOD COUNT 12.8 x10^3/uL (4.8-10.8)
[2017-02-22 05:30] LABS: ALBUMIN/GLOBULIN RATIO 1.5 (1.0-2.2); BILIRUBIN,TOTAL 0.6 mg/dL (0.2-1.0); CALCIUM 8.7 mg/dL (8.5-10.3); CREATININE 0.7 mg/dL (0.4-1.0); POTASSIUM 3.7 mmol/L (3.5-5.0); TOTAL PROTEIN 5.9 g/dL (6.7-8.2)
[2017-02-22 05:35] LABS: HEMOGLOBIN A1C 0.44 g/dL
[2017-02-22 05:41] LABS: MAGNESIUM 1.8 mg/dL (1.7-2.8); PHOSPHORUS 2.2 mg/dL (2.5-4.6)
[2017-02-22] MEDS: SODIUM CHLORIDE FLUSH 0.9% 10 ML SYRINGE IVP SCH ×2 (06:21→22:11)
[2017-02-22] MEDS: NEUTRA-PHOS 250 MG TABLET PO SCH ×2 (06:21→08:22)
[2017-02-22] MEDS ORDERED: PANTOPRAZOLE 40 MG VIAL IVP SCH (07:00)
[2017-02-22] MEDS: FLUoxetine 10 MG CAPSULE PO SCH (08:23)
[2017-02-22] MEDS ORDERED: NON FORMULARY MED (Fluoxetine Hcl [Fluoxetine Hcl] 40 MG) PO SCH (09:00)
--- NOTE | 2017-02-22 10:37 | PROVIDER PROGRESS NOTE ---
Subjective - Prog Note Date Prog Note Date: 02/22/17 Prog Note Time: 10:30 - Subjective Pt reports feeling: Improved Subjective: She was able to be extubated last night. She was able to be extubated last night. Overnight her O2 sats have been stable. No problems with breathing. She is walking in the room. Getting ready to take a shower. She says that she did not mean to kill herself. She does not have a really good explanation for why the bottles are empty in her car. The EKG last night shows that it was a large amount of drug. QT interval was definitely prolonged. This morning the QT interval is now normal Current Medications - Current Medications Current Medications: Active Medications Albuterol () 2.5 mg INH RTQ4H PRN PRN Reason: Wheezing Clonidine HCl (Catapres) 0.2 mg PO QPM OPAL Fluoxetine HCl (Prozac) 40 mg PO DAILY [facility] Last Admin: 02/22/17 08:23 Dose: 40 mg Sodium Chloride (Normal Saline 0.9%) 1,000 mls @ 0 mls/hr IV .Q0M OPAL PRN Reason: Wide Open Ondansetron HCl (Zofran Odt) 4 mg TL Q6HR PRN PRN Reason: Nausea / Vomiting Pantoprazole Sodium (Protonix) 40 mg IVP QDAC [facility] Last Admin: 02/22/17 06:21 Dose: 40 mg Sodium Chloride (Normal Saline Flush 0.9%) 10 ml IVP Q8HR [facility] Last Admin: 02/22/17 06:21 Dose: 10 ml Sodium Chloride (Normal Saline Flush 0.9%) 10 ml IVP PRN PRN PRN Reason: NEEDED PER PROVIDER ORDERS cloNIDine [Catapres] 0.2 mg PO QPM 05/22/15 Fluoxetine HCl 40 mg PO DAILY 02/02/17 Quetiapine Fumarate [Seroquel] 50 mg PO TID PRN 02/21/17 Objective - Vital Signs/Intake & Output Reviewed Vital Signs: Yes Vital Signs: Vital Signs x48h Temp Pulse Pulse Resp BP BP Pulse Ox 02/22/17 10:21 80 17 85/52 L 98 02/22/17 08:54 37.4 C 75 16 114/66 02/22/17 08:00 79 22 02/22/17 07:30 70 14 02/22/17 06:46 72 15 120/63 99 02/22/17 06:28 36.8 C 02/22/17 06:00 65 17 105/61 97 02/22/17 05:00 70 15 99/49 L 97 02/22/17 04:00 72 26 H 109/61 99 02/22/17 02:57 71 14 95/58 L 99 02/22/17 02:33 16 99 Intake & Output: Intake & Output 02/19/17 02/20/17 02/21/17 02/22/17 23:59 23:59 23:59 23:59 Intake Total 892.933 7881.861 Output Total 1517 590 Balance -7316.162 8616.861 - Objective General Appearance: positive: No acute distress, Alert Eyes Bilateral: positive: PERRL, EOMI ENT: positive: Pharynx nml Neck: positive: No JVD. negative: Stiff neck, Carotid bruit Respiratory: positive: Chest non-tender. negative: Wheezes, Rales, Rhonchi Cardiovascular: positive: Regular rate & rhythm. negative: Systolic murmur, Gallop/S4, Friction rub Abdomen: positive: Non-tender, No organomegaly, Nml bowel sounds, No distention Skin: positive: Warm, Dry Extremities: positive: Full ROM. negative: No pedal edema Neurologic/Psychiatric: positive: Oriented x3, CN's nml (2-12), Motor nml, Sensation nml - Lab Results Fish Bones: 02/22/17 04:48 02/22/17 04:48 Other Labs: Lab Results x24hrs 02/22/17 02/22/17 02/22/17 Range/Units 04:48 04:48 04:48 WBC (4.8-10.8) x10^3/uL RBC (4.20-5.40) 10^6/uL Hgb (12.0-16.0) g/dL Hct (37.0-47.0) % MCV (81.0-99.0) fL MCH (27.0-31.0) pg MCHC (32.0-36.0) g/dL RDW (12.0-15.0) % Plt Count (130-450) 10^3/uL MPV (7.9-10.8) fL Neut # (1.5-6.6) 10^3/uL Lymph # (1.5-3.5) 10^3/uL [place] # (0.0-1.0) 10^3/uL Eos # (0.0-0.7) 10^3/uL Baso # (0.0-0.1) 10^3/uL Absolute Nucleated RBC x10^3/uL Nucleated RBC % /100WBC Bld Gas Analysis Time Sample Site ABG pH (7.35-7.45) ABG pCO2 (34-45) mmHg ABG pO2 (80-100) mmHg ABG HCO3 (22.0-26.0) mmol/L ABG Total CO2 (21.0-29.0) MMOL/L ABG O2 Saturation (94-98) % ABG Oximetry Spot Check % ABG Base Excess (-2.0-3.0) mmol/L Igor Test Respiration Rate b/min O2 Delivery Device Vent Mode FiO2 Tidal Volume mL PEEP cmH2O Pressure Support Vent cmH2O Sodium 141 (135-145) mmol/L Potassium 3.7 (3.5-5.0) mmol/L Chloride 110 (101-111) mmol/L Carbon Dioxide 23 (21-32) mmol/L Anion Gap 8.0 (6-13) BUN 11 (6-20) mg/dL Creatinine 0.7 (0.4-1.0) mg/dL Estimated GFR (MDRD) 97 (>89) Glucose 114 H (70-100) mg/dL Glycated Hemoglobin 5.2 (4.6-6.2) % Estim Average Glucose 103 H (70-100) Calcium 8.7 (8.5-10.3) mg/dL Phosphorus 2.2 L (2.5-4.6) mg/dL Magnesium 1.8 (1.7-2.8) mg/dL Total Bilirubin 0.6 (0.2-1.0) mg/dL AST 19 (10-42) IU/L ALT 27 (10-60) IU/L Alkaline Phosphatase 49 (42-121) IU/L Total Protein 5.9 L (6.7-8.2) g/dL Albumin 3.5 (3.2-5.5) g/dL Globulin 2.4 (2.1-4.2) g/dL Albumin/Globulin Ratio 1.5 (1.0-2.2) 02/22/17 02/21/17 Range/Units 04:48 20:20 WBC 12.8 H (4.8-10.8) x10^3/uL RBC 4.01 L (4.20-5.40) 10^6/uL Hgb 12.0 (12.0-16.0) g/dL Hct 36.7 L (37.0-47.0) % MCV 91.5 (81.0-99.0) fL MCH 30.0 (27.0-31.0) pg MCHC 32.8 (32.0-36.0) g/dL RDW 13.3 (12.0-15.0) % Plt Count 332 (130-450) 10^3/uL MPV 6.8 L (7.9-10.8) fL Neut # 10.2 H (1.5-6.6) 10^3/uL Lymph # 1.5 (1.5-3.5) 10^3/uL [place] # 0.9 (0.0-1.0) 10^3/uL Eos # 0.1 (0.0-0.7) 10^3/uL Baso # 0.0 (0.0-0.1) 10^3/uL Absolute Nucleated RBC 0.00 x10^3/uL Nucleated RBC % 0.0 /100WBC Bld Gas Analysis Time 2020 Sample Site RIGHT RADIAL ABG pH 7.31 L (7.35-7.45) ABG pCO2 38 (34-45) mmHg ABG pO2 165 H* (80-100) mmHg ABG HCO3 18.9 L (22.0-26.0) mmol/L ABG Total CO2 20.1 L (21.0-29.0) MMOL/L ABG O2 Saturation 99 H (94-98) % ABG Oximetry Spot Check 100 % ABG Base Excess -6.7 L (-2.0-3.0) mmol/L Igor Test POSITIVE Respiration Rate 12 b/min O2 Delivery Device VENT Vent Mode SIMV FiO2 35.00 Tidal Volume 450 mL PEEP 5 cmH2O Pressure Support Vent 10 cmH2O Sodium (135-145) mmol/L Potassium (3.5-5.0) mmol/L Chloride (101-111) mmol/L Carbon Dioxide (21-32) mmol/L Anion Gap (6-13) BUN (6-20) mg/dL Creatinine (0.4-1.0) mg/dL Estimated GFR (MDRD) (>89) Glucose (70-100) mg/dL Glycated Hemoglobin (4.6-6.2) % Estim Average Glucose (70-100) Calcium (8.5-10.3) mg/dL Phosphorus (2.5-4.6) mg/dL Magnesium (1.7-2.8) mg/dL Total Bilirubin (0.2-1.0) mg/dL AST (10-42) IU/L ALT (10-60) IU/L Alkaline Phosphatase (42-121) IU/L Total Protein (6.7-8.2) g/dL Albumin (3.2-5.5) g/dL Globulin (2.1-4.2) g/dL Albumin/Globulin Ratio (1.0-2.2) Assessment/Plan - Problem List (1) Drug overdose Impression: At this time the assumption continues to be that she has taken Seroquel, clonidine, and propranolol. Those were the empty bottles in her car. Urine tox screen is positive for benzodiazepines and tricyclics. Negative for everything else including testing for salicylates and acetaminophen. No opiates. Airway was protected with intubation and now extubated. Plan: Medically stable. No arrhythmias in the face of possible beta-giovanny or Seroquel overdose and QT interval is now normal Will ask for [facility] eval Qualifiers: Encounter type: initial encounter Injury intent: intentional self-harm Qualified Code(s): T50.902A - Poisoning by unspecified drugs, medicaments and biological substances, intentional self-harm, initial encounter (2) Hyperglycemia Conclusion/Plan: No history of diabetes. A1c is normal (3) Airway clearance impairment Conclusion/Plan: As stated in problem #1, she was intubated. now extubated and stable.
[2017-02-22] MEDS: SODIUM CHLORIDE FLUSH 0.9% 10 ML SYRINGE IVP PRN (16:00)
[2017-02-22 18:00] LABS: BASOPHILS # (AUTO) 0.1 10^3/uL (0.0-0.1); BASOPHILS % (AUTO) 0.7 %; EOSINOPHILS # (AUTO) 0.3 10^3/uL (0.0-0.7); EOSINOPHILS % (AUTO) 2.3 %; HCT - HEMATOCRIT 37.3 % (37.0-47.0); HGB - HEMOGLOBIN 12.5 g/dL (12.0-16.0); LYMPHOCYTES # (AUTO) 2.6 10^3/uL (1.5-3.5); LYMPHOCYTES % (AUTO) 19.6 %; MEAN CORPUSCULAR HEMOGLOBIN 30.3 pg (27.0-31.0); MEAN CORPUSCULAR HGB CONC 33.4 g/dL (32.0-36.0); MEAN CORPUSCULAR VOLUME 90.7 fL (81.0-99.0); MEAN PLATELET VOLUME 6.8 fL (7.9-10.8); MONOCYTES % (AUTO) 7.6 %; NEUTROPHILS # (AUTO) 9.1 10^3/uL (1.5-6.6); NEUTROPHILS % (AUTO) 69.8 %; RED BLOOD COUNT 4.11 10^6/uL (4.20-5.40); RED CELL DISTRIBUTION WIDTH 13.4 % (12.0-15.0)
[2017-02-22] MEDS: cloNIDine 0.1 MG TABLET PO SCH (20:57)
[2017-02-22] MEDS: ACETAMINOPHEN 325 MG TABLET PO PRN (22:09)
[2017-02-23 05:05] LABS: BASOPHILS # (AUTO) 0.1 10^3/uL (0.0-0.1); BASOPHILS % (AUTO) 0.6 %; EOSINOPHILS # (AUTO) 0.3 10^3/uL (0.0-0.7); EOSINOPHILS % (AUTO) 3.8 %; HCT - HEMATOCRIT 35.5 % (37.0-47.0); HGB - HEMOGLOBIN 11.9 g/dL (12.0-16.0); LYMPHOCYTES # (AUTO) 3.1 10^3/uL (1.5-3.5); LYMPHOCYTES % (AUTO) 36.2 %; MEAN CORPUSCULAR HEMOGLOBIN 30.6 pg (27.0-31.0); MEAN CORPUSCULAR HGB CONC 33.4 g/dL (32.0-36.0); MEAN CORPUSCULAR VOLUME 91.4 fL (81.0-99.0); MEAN PLATELET VOLUME 6.8 fL (7.9-10.8); MONOCYTES # (AUTO) 0.8 10^3/uL (0.0-1.0); MONOCYTES % (AUTO) 8.9 %; NEUTROPHILS # (AUTO) 4.3 10^3/uL (1.5-6.6); NEUTROPHILS % (AUTO) 50.5 %; RED BLOOD COUNT 3.89 10^6/uL (4.20-5.40); RED CELL DISTRIBUTION WIDTH 13.2 % (12.0-15.0); UNCORRECTED WHITE BLOOD COUNT 8.5 x10^3/uL; WHITE BLOOD COUNT 8.5 x10^3/uL (4.8-10.8)
[2017-02-23] MEDS: SODIUM CHLORIDE FLUSH 0.9% 10 ML SYRINGE IVP SCH ×2 (06:38→19:40)
[2017-02-23] MEDS: ACETAMINOPHEN 325 MG TABLET PO PRN (08:55)
[2017-02-23] MEDS: FLUoxetine 10 MG CAPSULE PO SCH (08:55)
--- NOTE | 2017-02-23 10:36 | Discharge Plan ---
Discharge Plan Disposition: [facility] Psych Hosp/Unit DC/Xfer Condition: Good Diet: Regular Activity Restrictions: Activity as Tolerated Shower Restrictions: No Driving Restrictions: No Instruction Topics: Quetiapine tablets Additional Instructions or Follow Up instructions: You were admitted into the hospital because you were unconscious after taking too many medications. Because you were in danger of stopping breathing and/or not being able to protect your airway, you were intubated and put on a breathing machine temporarily. Once you were awake, you were able to be extubated. The only other risk identified was a change in your EKG from too much medication. That is also now normal. You were being voluntarily being transferred to an inpatient psychiatric unit but all have declined admission at this time. As such, you have spoken to the [facility], discharge was decided and plans have been made for followup with your mental health provider. No Smoking: If you smoke, Please STOP! Call for help. Follow-up with: Willie Harris MD [Primary Care Provider] -
[2017-02-23] MEDS: cloNIDine 0.1 MG TABLET PO SCH (21:55)
[2017-02-24] MEDS: SODIUM CHLORIDE FLUSH 0.9% 10 ML SYRINGE IVP SCH ×3 (06:46→15:35)
[2017-02-24] MEDS: ACETAMINOPHEN 325 MG TABLET PO PRN (07:40)
[2017-02-24] MEDS: SODIUM CHLORIDE FLUSH 0.9% 10 ML SYRINGE IVP PRN (09:02)
[2017-02-24] MEDS: FLUoxetine 10 MG CAPSULE PO SCH (09:03)
[2017-02-24 10:34] LABS: HCG UR QUAL NEGATIVE
--- NOTE | 2017-02-24 18:30 | PROVIDER PROGRESS NOTE ---
Subjective - Prog Note Date Prog Note Date: 02/24/17 Prog Note Time: 18:28 - Subjective Pt reports feeling: No change Subjective: This patient has been extubated since the senior mechanical estimator hours of February 22. She is ambulatory. Walking the hallways in laps. She is sitting in her room watching TV and interacting on her phone with games. She eats her meals, goes to the bathroom without any assist. We have been waiting for a bed to open up for her voluntary psych admission. The psychiatric facility says that she is unstable with her respiratory status and would like her to be stabilized 1 more day. I have attempted to speak that medical hospital sales, and I received no phone call. I do not know what they are talking about when they state that the patient is unstable from a respiratory perspective. She is 98% on room air. Pulse is in the 60s and 70s and stable. They wanted a test that is negative. They want a repeat white cell count to be normal and has been normal since yesterday. Current Medications - Current Medications Current Medications: Active Medications Acetaminophen (Tylenol) 650 mg PO Q4HR PRN PRN Reason: Pain or Fever > 38C (100.4F) Last Admin: 02/24/17 07:40 Dose: 650 mg Albuterol () 2.5 mg INH RTQ4H PRN PRN Reason: Wheezing Last Admin: 02/23/17 07:45 Dose: 2.5 mg Clonidine HCl (Catapres) 0.2 mg PO QPM OPAL Last Admin: 02/23/17 21:55 Dose: 0.2 mg Fluoxetine HCl (Prozac) 40 mg PO DAILY [facility] Last Admin: 02/24/17 09:03 Dose: 40 mg Ondansetron HCl (Zofran Odt) 4 mg TL Q6HR PRN PRN Reason: Nausea / Vomiting Sodium Chloride (Normal Saline Flush 0.9%) 10 ml IVP Q8HR OPAL Last Admin: 02/24/17 15:35 Dose: Not Given Sodium Chloride (Normal Saline Flush 0.9%) 10 ml IVP PRN PRN PRN Reason: NEEDED PER PROVIDER ORDERS Last Admin: 02/24/17 09:02 Dose: 10 ml cloNIDine [Catapres] 0.2 mg PO QPM 05/22/15 Fluoxetine HCl 40 mg PO DAILY 02/02/17 Quetiapine Fumarate [Seroquel] 50 mg PO TID PRN 02/21/17 Objective - Vital Signs/Intake & Output Reviewed Vital Signs: Yes Vital Signs: Vital Signs x48h Temp Pulse Pulse Resp BP Pulse Ox 02/24/17 16:45 74 16 02/24/17 15:22 36.9 C 67 20 137/85 H 98 Intake & Output: Intake & Output 02/21/17 02/22/17 02/23/17 02/24/17 23:59 23:59 23:59 23:59 Intake Total 430.988 3132.861 1080 1170 Output Total 1517 5190 Balance -1003.869 -8041.239 2304 1170 - Objective General Appearance: positive: No acute distress, Alert Eyes Bilateral: positive: PERRL, EOMI ENT: positive: Pharynx nml Neck: positive: No JVD. negative: Lymphadenopathy (R), Lymphadenopathy (L), Stiff neck, Carotid bruit Respiratory: positive: Chest non-tender. negative: Wheezes, Rales, Rhonchi Cardiovascular: positive: Regular rate & rhythm. negative: Gallop/S4, Friction rub Abdomen: positive: Non-tender, No organomegaly, Nml bowel sounds, No distention Skin: positive: Warm, Dry Extremities: positive: Full ROM, No pedal edema Neurologic/Psychiatric: positive: Oriented x3, CN's nml (2-12), Motor nml - Lab Results Fish Bones: 02/23/17 04:36 02/22/17 04:48 Other Labs: Lab Results x24hrs 02/24/17 Range/Units 10:10 Ur Specific [place] 1.010 (1.002-1.030) Urine HCG, Qual NEGATIVE Assessment/Plan - Problem List (1) Drug overdose Impression: She has recovered from her overdose. She has been medically stable for 48 hours. We are just waiting for a bed to open up according to the criteria that the psych facility changes every day. We will see what this afternoon or in the next day brings.
[2017-02-24] MEDS: cloNIDine 0.1 MG TABLET PO SCH (22:02)
[2017-02-25] MEDS: SODIUM CHLORIDE FLUSH 0.9% 10 ML SYRINGE IVP SCH (06:46)
[2017-02-25] MEDS: FLUoxetine 10 MG CAPSULE PO SCH (09:31)
[2017-02-25 14:42] VITALS: BP 137/90
--- NOTE | 2017-02-28 09:16 | DISCHARGE SUMMARY ---
ADMIT DATE: 02/21/2017 DISCHARGE DATE: 02/25/2017 PRIMARY CARE PROVIDER: [facility]; Willie Harris MD DISCHARGE DIAGNOSES 1. Polysubstance drug overdose. 2. Airway clearance impairment. 3. Prolonged QT interval on electrocardiogram. 4. Hyperglycemia. DISCHARGE MEDICATIONS 1. Clonidine 0.2 mg every evening. 2. Fluoxetine 40 mg p.o. daily. 3. Seroquel 50 mg p.o. t.i.d. p.r.n. anxiety. PRINCIPAL PROCEDURES 1. Intubation to protect airway for less than [address] that did not reveal any interval changes, may be some right maxillary sinusitis, otherwise negative. 3. Chest x-ray without infiltrate, consolidation, effusion or pneumothorax. HOSPITAL COURSE: This is a 31-year-old white female who has had incidents with polysubstance drug overdose, now for the third time at this institution. There is varying accounts whether she is suicidal or not. There are times that the patient expresses suicidal ideation and times that she does not. With this episode, she was found down in her rental car in the hospital parking lot. A passerby saw her, notified the admitting desk who notified ER. She was unresponsive. Empty bottles of medications were in the car with her. She was brought into the emergency room and intubated since she was unresponsive with a Anais coma scale of 3. After several hours of intubation, the patient woke up on her own. She was easily extubated. She did have an incidental finding of an elevated white cell count during her stay, but there is no fever, no chills, mo cough, no shortness of breath. No abdominal pain. No urgency, frequency, dysuria, or flank pain as she had with her previous admission, and kidney stones. When she was awake, she says that this was not a suicide attempt; that she was taking medications as instructed, that it is not her fault that she had side effects. She was on the way to the hospital because she was feeling short of breath and got in her car and drove here and then became unconscious after she parked her car. She did want to be a voluntary transfer to an inpatient psych unit. With her last discharge from the inpatient psych unit, she was to receive intensive counseling and in fact already met with her mental health provider once and is to meet with her mental health provider again in the next week. She firmly states she is not suicidal. She has no plans to kill herself. After several attempts at inpatient admission, all of which declined accepting her, the patient was discharged to home. Please refer to detailed notes and social work notes as to reasons why patient was declined. PHYSICAL EXAMINATION VITAL SIGNS: At discharge, temperature is 36.1, pulse is 76, blood pressure is 137/90, respirations 18, and 98% on room air. GENERAL: She is a mildly overweight, young white female who looks her stated age. Well groomed, well nourished. No acute respiratory distress. NECK: Supple. LUNGS: Clear. CARDIAC: Regular rate and rhythm. ABDOMEN: Benign abdominal exam. EXTREMITIES: Without any edema. CONDITION: She has been ambulating in the hallways for the last 2 days. Ambulating in her room. She has been eating her food without any difficulty. Has had no hypoxemia, no respiratory distress. FOLLOWUP: She is asked to follow up per her social work conversation with intensive mental health counseling. TD: 02/27/2017 06:56 GAMA
== END 2017-02-25 16:25 | disposition home or self-care (01) | DRG 917 ==
LOC: EDUNIT# → SUPCPDRO 12:25 → ED 12:25 → ICU 14:44 → EEVIPCON 14:44
PROVIDERS: ADMIT Specialist; ATTEND Specialist
PROC: 5A1935Z Respiratory Ventilation, Less than 24 Consecutive Hours (ICD-10-PCS; principal; 2017-02-21)
DX: T46.5X1A Poisoning by other antihypertensive drugs, accidental (unintentional), initial encounter (principal); R40.20 Unspecified coma; T43.591A Poisoning by other antipsychotics and neuroleptics, accidental (unintentional), initial encounter; I95.2 Hypotension due to drugs; R94.31 Abnormal electrocardiogram [ECG] [EKG]; F41.9 Anxiety disorder, unspecified; E66.3 Overweight; F32.9 Major depressive disorder, single episode, unspecified; I10 Essential (primary) hypertension; E78.00 Pure hypercholesterolemia, unspecified; E03.9 Hypothyroidism, unspecified; Z91.5 Personal history of self-harm; Z78.1 Physical restraint status; Z87.442 Personal history of urinary calculi; Z68.28 Body mass index [BMI] 28.0-28.9, adult; Z86.14 Personal history of Methicillin resistant Staphylococcus aureus infection
CPT/HCPCS: 31500; 36415; 36600; 70450; 71010; 80053; 80306; 80307; 80320; 80329; 81025; 82375; 82803; 83036; 83605; 83735; 84100; 85025; 87150; 93005; 94002; 94003; 94640; 94770; 96374; 96375; 99285; 99291

== ENCOUNTER 2023-06-24 11:32 | Day surgery (SDC) | payer MEDICAID, OTHER ==
--- NOTE | 2023-06-24 11:55 | ED Physician Documentation ---
PD HPI ABD PAIN - Stated complaint Stated Complaint: LWR ABD PX/BACK PX - Chief complaint Chief Complaint: Abd Pain - Additional information Additional information: 38-year-old female with history of polysubstance abuse, renal calculi, hypert ension, hypercholesterolemia, asthma, hypothyroidism PRESENTS emergency department for right flank pain. Patient says that last kidney stone she presumes is about 3 months ago but she was able to tolerate it and passed that without the need to come in. Yesterday she started to experience right flank pain that has increased in severity. She said that she has tried to do all the things that she normally does with kidney stones but has not been able to pass stone. She is unsure if she has had any fevers but she has been having chills with the waves of pain. She has been nauseous with vomiting no diarrhea no shortness of breath no chest pain. PD PAST MEDICAL HISTORY - Past Medical History Cardiovascular: Hypertension, High cholesterol Respiratory: Asthma, Pneumonia Endocrine/Autoimmune: HyPOthyroidism [employer]: Other : Chronic bladder infection, Kidney stones HEENT: None Psych: Depression Derm: None - Past Surgical History Past Surgical History: Yes HEENT: Tonsil/Adenoidectomy - Present Medications Home Medications: Ambulatory Orders Medication Instructions Recorded Confirmed cloNIDine [Catapres] 0.2 mg PO QPM 05/22/15 02/21/17 Fluoxetine HCl 40 mg PO DAILY 02/02/17 02/21/17 Quetiapine Fumarate [Seroquel] 50 mg PO TID PRN 02/21/17 02/21/17 HYDROcod/ACETAM 5/325 [[place] 5/325] 1 - 2 tablet PO Q6H PRN #14 tablet 06/24/23 Ondansetron Odt [Zofran Odt] 4 mg TL Q6H PRN #10 tablet 06/24/23 Tamsulosin [Flomax] 1 cap PO DAILY #14 cap 06/24/23 - Allergies Allergies/Adverse Reactions: Allergies Allergy/AdvReac Type Severity Reaction Status Date / Time morphine Allergy Nausea Verified 06/24/23 11:49 sulfamethoxazole AdvReac Intermediate Emesis Verified 06/24/23 11:49 [From Bactrim] trimethoprim [From Bactrim] AdvReac Intermediate Emesis Verified 06/24/23 11:49 cilantro Allergy Respiratory Uncoded 06/24/23 11:49 - Social History Does the pt smoke?: No Smoking Status: Never smoker Does the pt drink ETOH?: Yes Does the pt have substance abuse?: No - Immunizations Immunizations are current?: Yes Immunizations: TDAP current <10years - POLST Patient has POLST: No POLST Status: Full Code PD ED PE NORMAL - Vitals Vital signs reviewed: Yes - General General: Alert and oriented X 3, Well developed/nourished, Other (Tearful and appears to be in pain) - Cardiac Cardiac: RRR - Respiratory Respiratory: No respiratory distress, Clear bilaterally - Abdomen Abdomen: Normal bowel sounds, Soft, Non tender, No organomegaly - Back Back: Other (right CVA tenderness) - Derm Derm: Normal color, Warm and dry, No rash - Extremities Extremities: No edema - Psych Psych: Normal mood, Normal affect Results - Vitals Vitals: Vital Signs - 24 hr 06/24/23 06/24/23 06/24/23 11:44 15:39 19:47 Temperature 36.4 C L 37.9 C Heart Rate 82 70 72 Respiratory 18 18 19 Rate Blood Pressure 149/85 H 144/79 H 138/82 H O2 Saturation 100 97 97 06/24/23 21:00 Temperature Heart Rate 90 Respiratory 18 Rate Blood Pressure 144/88 H O2 Saturation 97 Oxygen O2 Source Room air - Labs Labs: Laboratory Tests 06/24/23 06/24/23 06/24/23 12:00 12:00 12:50 WBC 11.2 H RBC 4.90 Hgb 15.0 Hct 45.0 MCV 91.8 MCH 30.6 MCHC 33.3 RDW 11.9 L Plt Count 468 H MPV 8.5 Neut # (Auto) 7.5 H Lymph # (Auto) 2.5 [place] # (Auto) 0.8 Eos # (Auto) 0.3 Baso # (Auto) 0.1 Absolute Nucleated RBC 0.00 Nucleated RBC % 0.0 Sodium 136 Potassium 3.9 Chloride 104 Carbon Dioxide 24 Anion Gap 8.0 BUN 9 Creatinine 0.9 Estimated GFR (MDRD) 70 L Glucose 123 H Calcium 9.5 Total Bilirubin 0.5 AST 16 ALT 12 Alkaline Phosphatase 58 Total Protein 7.4 Albumin 4.4 Globulin 3.0 Albumin/Globulin Ratio 1.5 Lipase 89 H Urine Color Urine Clarity Urine pH Ur Specific [place] Urine Protein Urine Glucose (UA) Urine Ketones Urine Occult Blood Urine Nitrite Urine Bilirubin Urine Urobilinogen Ur Leukocyte Esterase Urine RBC Urine WBC Ur Squamous Epith Cells Urine Crystals Amorphous Sediment Urine Bacteria Urine Mucus Ur Microscopic Review Urine Culture Comments Urine HCG, Qual NEGATIVE 06/24/23 06/24/23 12:50 17:06 WBC RBC Hgb Hct MCV MCH MCHC RDW Plt Count MPV Neut # (Auto) Lymph # (Auto) [place] # (Auto) Eos # (Auto) Baso # (Auto) Absolute Nucleated RBC Nucleated RBC % Sodium Potassium Chloride Carbon Dioxide Anion Gap BUN Creatinine Estimated GFR (MDRD) Glucose Calcium Total Bilirubin AST ALT Alkaline Phosphatase Total Protein Albumin Globulin Albumin/Globulin Ratio Lipase Urine Color YELLOW YELLOW Urine Clarity CLEAR HAZY Urine pH 6.0 6.0 Ur Specific [place] >=1.030 H >=1.030 H Urine Protein 30 H TRACE Urine Glucose (UA) NEGATIVE NEGATIVE Urine Ketones NEGATIVE NEGATIVE Urine Occult Blood LARGE H LARGE H Urine Nitrite NEGATIVE NEGATIVE Urine Bilirubin NEGATIVE NEGATIVE Urine Urobilinogen 0.2 (NORMAL) 0.2 (NORMAL) Ur Leukocyte Esterase TRACE H NEGATIVE Urine RBC 11-25 H TNTC H Urine WBC 4-5 6-10 H Ur Squamous Epith Cells MANY Squamous H FEW Squamous Urine Crystals 0-2 Calcium Oxalate Amorphous Sediment Moderate Urine Bacteria Few Few Urine Mucus Moderate Strands Ur Microscopic Review INDICATED INDICATED Urine Culture Comments NOT INDICATED NOT INDICATED Urine HCG, Qual - Rads (name of study) CT KUB Relevant Findings:: Final report received, EMP independent interpretation of test, Other (mild right hydronephrosis and 7mm stone to right proxima ureter) PD Medical Decision Making - ED course ED course: 38-year-old female presents emergency department for right flank pain differentials include but are not limited to, renal colic due to renal calculi, pyelonephritis, atypical appendicitis, pneumonia. Labs: She has mild leukocytosis, 11.2 platelet count elevated at 468 neutrophils also slightly elevated at 7.5. CMP is overall unremarkable kidney function wit hin normal limits no electrolyte abnormalities. Original urinalysis had many squamous cells we repeated a straight cath and urinalysis does not have any signs of leukocytes or other infection. I did have a large amount of hematuria. HCG negative. CT KUB Was complete and she was found to have a 7 mm right proximal ureter stone with mild right hydronephrosis. We attempted to control patient's pain with Dilaudid and IV lidocaine she is able to have her pain controlled for short duration of time until the pain comes back pretty severe. She has been having episodes of nausea and vomiting and because of this I believe that patient needs to be admitted for pain control. Because this is a 7 mm stone our hospitalist Dr. Nieto does not feel comfortable taking the patient because we do not have urology on-call over this weekend. We are working on transferring patient out to another hospital where they have neurology onsite in case patient needs a stat urgent stent. Patient later endorses that she spikes a fever of 103 F at home here she spiked a fever 37.9 F. Because of that and her new worsening malaise I decided to go ahead and start her on some IV Rocephin. It appears the patient will be boarding overnight as we are having a hard time finding placement for the patient. Report given to Dr. Lujan who will be further managing the patient's care. Departure - Departure Disposition: 02 Transfer Acute Care Hosp Clinical Impression: Renal calculi, Ureteral calculus, right Instructions: ED Stone Renal W Colic Follow-Up: Ruslan Mills MD [Provider Admit Priv/Credential] - Prescriptions: Tamsulosin [Flomax] 1 cap PO DAILY #14 cap HYDROcod/ACETAM 5/325 [[place] 5/325] 1 - 2 tablet PO Q6H PRN #14 tablet PRN Reason: Pain Ondansetron Odt [Zofran Odt] 4 mg TL Q6H PRN #10 tablet PRN Reason: Nausea / Vomiting Comments: We have completed a CT scan and found a 7 mm stone on your right ureter. At this point in time we have started you on Flomax we have given you some IV li docaine that will eventually start to metabolize to your kidneys so this should also help with your pain and IV pain medication. I want you to follow-up with Dr. Mills on Monday let him know about today's ER visit I have attached the radiology read on your discharge paperwork. Please follow-up with Dr. Mills outpatient I have attached this information contact him on Monday to get in with him as soon as possible. Come back to the ER I think if you are starting to develop any worsening pain uncontrolled with the pain medication we have sent to the pharmacy for you or if you are starting develop any fevers or chills. TECHNIQUE: A CT scan of the abdomen and pelvis was performed without the use of intravenous contrast. Images were recorded and evaluated at appropriate window settings. Reformats: coronal and sagittal. For radiation dose reduction, the following was used: automated exposure control, adjustment of mA and/or kV according to patient size. COMPARISON: CT abdomen and pelvis 12/18/2015 FINDINGS: Image quality: Diagnostic. Lower chest: Unremarkable. Liver: No contour-deforming mass. The liver measures 18.2 cm, mildly enlarged. Gallbladder and biliary tree: Unremarkable. Spleen: No splenomegaly. Pancreas: No pancreatic ductal dilation. Adrenals: No adrenal nodule. Kidneys and ureters: 2 punctate nonobstructing calcifications are present within the left kidney. 6 calcifications are present within the right kidney and the largest measuring 3 mm. There is mild hydronephrosis. Proximal right ureteral calculus is present measuring 7 mm, Hounsfield units 1361. Proximal hydroureter is present with periureteral stranding. Calcifications is overall increased in size and number within the kidneys bilaterally since 2016. Stomach, bowel and peritoneum: No bowel distension. No pathologic free fluid. Mild hiatal hernia. Appendix is normal. Lymph nodes: No central or retroperitoneal adenopathy. Vessels: No infrarenal aortic aneurysm. Reproductive organs: IUD is present. Bladder: Bladder wall thickness is normal, accounting for underdistention. No calcified bladder stones. Pelvic lymph nodes: No adenopathy by size criteria. Bones: No aggressive osseous abnormality. Other: No significant ventral or inguinal hernia. IMPRESSION: Mild right hydronephrosis and hydroureter secondary to obstructing proximal ureteral calculus. Forms: PCP List
[2023-06-24 12:06] LABS: BASOPHILS # (AUTO) 0.1 10^3/uL (0.0-0.1); BASOPHILS % (AUTO) 0.6 %; EOSINOPHILS # (AUTO) 0.3 10^3/uL (0.0-0.7); EOSINOPHILS % (AUTO) 2.9 %; LYMPHOCYTES # (AUTO) 2.5 10^3/uL (1.5-3.5); MEAN CORPUSCULAR HEMOGLOBIN 30.6 pg (27.0-31.0); MEAN CORPUSCULAR HGB CONC 33.3 g/dL (32.0-36.0); MEAN CORPUSCULAR VOLUME 91.8 fL (81.0-99.0); MEAN PLATELET VOLUME 8.5 fL (7.9-10.8); MONOCYTES # (AUTO) 0.8 10^3/uL (0.0-1.0); NEUTROPHILS # (AUTO) 7.5 10^3/uL (1.5-6.6); NEUTROPHILS % (AUTO) 67.1 %; PLT - PLATELET COUNT 468 10^3/uL (130-450); RED CELL DISTRIBUTION WIDTH 11.9 % (12.0-15.0); WHITE BLOOD COUNT 11.2 x10^3/uL (4.8-10.8)
[2023-06-24] MEDS: KETOROLAC 30 MG/ML VIAL IVP STA (12:12)
[2023-06-24] MEDS: ONDANSETRON 4 MG/2 ML VIAL IVP STA ×2 (12:13→16:30)
[2023-06-24] MEDS: SODIUM CHLORIDE 0.9% 1,000 ML IV ONE (12:15)
[2023-06-24] MEDS: HYDROmorphone 0.5 MG/0.5 ML SYRINGE IVP STA ×2 (12:30→19:23)
[2023-06-24 12:48] LABS: ALBUMIN 4.4 g/dL (3.2-5.5); ALBUMIN/GLOBULIN RATIO 1.5 (1.0-2.2); BILIRUBIN,TOTAL 0.5 mg/dL (0.2-1.0); CALCIUM 9.5 mg/dL (8.5-10.3); CREATININE 0.9 mg/dL (0.6-1.3); POTASSIUM 3.9 mmol/L (3.5-4.5); TOTAL PROTEIN 7.4 g/dL (6.4-8.9)
[2023-06-24 13:02] LABS: BILIRUBIN,URINE NEGATIVE (NEGATIVE); GLUCOSE, URINE (UA) NEGATIVE (NEGATIVE); KETONES,URINE (UA) NEGATIVE (NEGATIVE); LEUKOCYTE ESTERASE, URINE TRACE (NEGATIVE); NITRITE,URINE NEGATIVE (NEGATIVE); OCCULT BLOOD,URINE LARGE (NEGATIVE); PROTEIN,URINE 30 mg/dL (NEGATIVE); UROBILINOGEN,URINE 0.2 (NORMAL) E.U./dL (NORMAL)
[2023-06-24 13:07] LABS: CLARITY,URINE CLEAR (CLEAR)
[2023-06-24 13:08] LABS: HCG UR QUAL NEGATIVE
[2023-06-24 13:14] LABS: AMORPHOUS SEDIMENT,UR Moderate /LPF; BACTERIA,URINE Few /HPF (None Seen); MUCUS,URINE Moderate Strands; SQUAMOUS EPITHELIAL CELL,UR MANY Squamous (<= Few)
[2023-06-24] MEDS: HYDROmorphone 1 MG/ML CARPUJECT IVP STA ×3 (13:35→16:35)
--- NOTE | 2023-06-24 14:01 | CT Report ---
PROCEDURE: KUB INDICATIONS: right flank pain TECHNIQUE: A CT scan of the abdomen and pelvis was performed without the use of intravenous contrast. Images we re recorded and evaluated at appropriate window settings. Reformats: coronal and sagittal. For radiat ion dose reduction, the following was used: automated exposure control, adjustment of mA and/or kV ac cording to patient size. COMPARISON: CT abdomen and pelvis 12/18/2015 FINDINGS: Image quality: Diagnostic. Lower chest: Unremarkable. Liver: No contour-deforming mass. The liver measures 18.2 cm, mildly enlarged. Gallbladder and biliary tree: Unremarkable. Spleen: No splenomegaly. Pancreas: No pancreatic ductal dilation. Adrenals: No adrenal nodule. Kidneys and ureters: 2 punctate nonobstructing calcifications are present within the left kidney. 6 c alcifications are present within the right kidney and the largest measuring 3 mm. There is mild hydro nephrosis. Proximal right ureteral calculus is present measuring 7 mm, Hounsfield units 1361. Proxima l hydroureter is present with periureteral stranding. Calcifications is overall increased in size and number within the kidneys bilaterally since 2016. Stomach, bowel and peritoneum: No bowel distension. No pathologic free fluid. Mild hiatal hernia. Dennis endix is normal. Lymph nodes: No central or retroperitoneal adenopathy. Vessels: No infrarenal aortic aneurysm. Reproductive organs: IUD is present. Bladder: Bladder wall thickness is normal, accounting for underdistention. No calcified bladder stone s. Pelvic lymph nodes: No adenopathy by size criteria. Bones: No aggressive osseous abnormality. Other: No significant ventral or inguinal hernia. IMPRESSION: Mild right hydronephrosis and hydroureter secondary to obstructing proximal ureteral calculus. Reviewed by: Nova Adair MD on 06/24/2023 2:00 PM PDT Approved by: Nova Adair MD on 06/24/2023 2:00 PM PDT Station ID: [id number]
[2023-06-24] MEDS: SODIUM CHLORIDE 0.9% IV STA (14:43)
[2023-06-24] MEDS: LIDOCAINE MPF 2% IV STA (14:43)
[2023-06-24] MEDS: TAMSULOSIN 0.4 MG CAPSULE PO STA (14:50)
[2023-06-24] MEDS: cefTRIAXone 1 GM in SODIUM CHLORIDE 0.9% MINIBAG 100 ML IV STA (16:26)
[2023-06-24 17:21] LABS: BILIRUBIN,URINE NEGATIVE (NEGATIVE); GLUCOSE, URINE (UA) NEGATIVE (NEGATIVE); KETONES,URINE (UA) NEGATIVE (NEGATIVE); LEUKOCYTE ESTERASE, URINE NEGATIVE (NEGATIVE); NITRITE,URINE NEGATIVE (NEGATIVE); OCCULT BLOOD,URINE LARGE (NEGATIVE); PROTEIN,URINE TRACE mg/dL (NEGATIVE); UROBILINOGEN,URINE 0.2 (NORMAL) E.U./dL (NORMAL)
[2023-06-24 17:23] LABS: CLARITY,URINE HAZY (CLEAR)
[2023-06-24 17:33] LABS: BACTERIA,URINE Few /HPF (None Seen); CRYSTALS,URINE 0-2 Calcium Oxalate /LPF; RBC,URINE TNTC /HPF (0-5); SQUAMOUS EPITHELIAL CELL,UR FEW Squamous (<= Few)
[2023-06-24] MEDS: HYDROmorphone 0.5 MG/0.5 ML SYRINGE IVP PRN ×2 (21:42→23:48)
[2023-06-24] MEDS: SODIUM CHLORIDE 0.9% 1,000 ML IV STA (21:43)
[2023-06-24 22:28] LABS: INFLUENZA A- RESP PCR PANEL NOT DETECTED; INFLUENZA B - RESP PCR PANEL NOT DETECTED; RSV- RESP PCR PANEL NOT DETECTED; SARS-CoV-2 -RESP PCR PANEL NOT DETECTED
[2023-06-25 00:53] LABS: BASOPHILS # (AUTO) 0.1 10^3/uL (0.0-0.1); BASOPHILS % (AUTO) 0.4 %; EOSINOPHILS # (AUTO) 0.1 10^3/uL (0.0-0.7); HCT - HEMATOCRIT 41.2 % (37.0-47.0); HGB - HEMOGLOBIN 13.9 g/dL (12.0-16.0); LYMPHOCYTES # (AUTO) 2.5 10^3/uL (1.5-3.5); LYMPHOCYTES % (AUTO) 19.6 %; MEAN CORPUSCULAR HEMOGLOBIN 31.2 pg (27.0-31.0); MEAN CORPUSCULAR HGB CONC 33.7 g/dL (32.0-36.0); MEAN CORPUSCULAR VOLUME 92.6 fL (81.0-99.0); MEAN PLATELET VOLUME 8.6 fL (7.9-10.8); MONOCYTES # (AUTO) 0.8 10^3/uL (0.0-1.0); MONOCYTES % (AUTO) 6.3 %; NEUTROPHILS # (AUTO) 9.3 10^3/uL (1.5-6.6); NEUTROPHILS % (AUTO) 72.5 %; PLT - PLATELET COUNT 406 10^3/uL (130-450); RED BLOOD COUNT 4.45 10^6/uL (4.20-5.40); RED CELL DISTRIBUTION WIDTH 11.7 % (12.0-15.0); WHITE BLOOD COUNT 12.9 x10^3/uL (4.8-10.8)
--- NOTE | 2023-06-25 01:08 | ED Physician Documentation ---
ED Addendum - Addendum Addendum: 06/25/23 00:40 I received signout/turnover of care on this patient from DEJA Mae; please see her note for complete H&P. At the time of turnover of care, we are looking for a bed at an appropriate facility for this patient. DEJA Mae had already discussed this case with the [facility] hospitalist (Dr. Nieto), who opined that the patient is inappropriate for admission to [facility] due to lack of urology services until Monday. At this time (00:40), I have just now heard from the transfer center coordinator for [facility]. She says the urologist at that facility had been informed of the patient's case but does not offer opinion nor consult until the patient is actually at the [facility]. Unfortunately, the [facility] hospitalist (Dr. Montilla) refuses to accept this patient for transfer. Per my discussion with the transfer co ordinator, Dr. Montilla has reviewed the chart and the test results and does not feel there is any benefit nor necessity of transfer to their facility. Dr. Montilla says the patient can be admitted to [facility] for pain control (see above regarding d/w [facility] hospitalist). Will repeat labs, add lactate, and continue to hold in [facility] ED until bed available elsewhere, or if symptoms are adequately controlled with transition to PO meds and provided serial labs and clinical situation do not evidence/suggest concomitant infectious process such as pyelonephritis. Of course, if symptoms continue to prove difficult to control and patient is still in [facility] ED Monday when urology services are available, can reconsider admit to [facility] at that time.
[2023-06-25 01:35] LABS: CALCIUM 8.5 mg/dL (8.5-10.3); CREATININE 0.7 mg/dL (0.6-1.3); POTASSIUM 4.1 mmol/L (3.5-4.5)
[2023-06-25 02:21] LABS: BILIRUBIN,URINE NEGATIVE (NEGATIVE); GLUCOSE, URINE (UA) NEGATIVE (NEGATIVE); KETONES,URINE (UA) NEGATIVE (NEGATIVE); LEUKOCYTE ESTERASE, URINE SMALL (NEGATIVE); NITRITE,URINE NEGATIVE (NEGATIVE); OCCULT BLOOD,URINE LARGE (NEGATIVE); PROTEIN,URINE NEGATIVE (NEGATIVE); UROBILINOGEN,URINE 0.2 (NORMAL) E.U./dL (NORMAL)
[2023-06-25 02:38] LABS: BACTERIA,URINE Rare /HPF (None Seen); CLARITY,URINE HAZY (CLEAR); SQUAMOUS EPITHELIAL CELL,UR MOD Squamous (<= Few); WBC,URINE 0-3 /HPF (0-5)
[2023-06-25] MEDS: ONDANSETRON 4 MG/2 ML VIAL IVP PRN (07:34)
[2023-06-25] MEDS: TAMSULOSIN 0.4 MG CAPSULE PO SCH (13:16)
[2023-06-25] MEDS: KETOROLAC 15 MG/ML VIAL IVP SCH (13:16)
[2023-06-25] MEDS: cefTRIAXone 1 GM VIAL IVP SCH (13:16)
[2023-06-25] MEDS: DROPERIDOL 5 MG/2 ML VIAL IVP STA (13:16)
[2023-06-25] MEDS: SODIUM CHLORIDE 0.9% 1,000 ML IV STA (13:17)
[2023-06-25] MEDS: HYDROmorphone 1 MG/ML CARPUJECT IVP PRN (13:17)
[2023-06-25] MEDS: ACETAMINOPHEN 325 MG TABLET PO SCH (14:41)
--- NOTE | 2023-06-25 14:50 | ED Physician Documentation ---
ED Addendum - Addendum Addendum: 06/25/23 14:48 I talked with the patient about her pain and pain levels with medication overnight into this morning and general symptoms. She is not having any fever or chills. Some nausea but no vomiting. She is still having frequent pain that is only moderately controlled with the current pain medicine. Current prescription or ordered medicines in the ER is 0.5 mg Dilaudid every 2-3 hours. No anti-inflammatories. She had been given a dose of antibiotic yesterday of Rocephin and there had been a concern of UTI. Repeat blood count was normal this morning and she has not had any fevers. However does seem reasonable to continue the antibiotic for now. Rocephin 1 g IV was ordered twice daily. I ordered ketorolac 15 mg twice daily regularly and tamsulosin daily. In addition since she is not getting relief from the ondansetron, I ordered droperidol every 6 hours if needed for nausea. I increased her pain medicine to 1 mg hide her more phone every 3-4 hours if needed for pain. Hopefully this regimen will be more effective. We are still hoping to hear from [facility] about bed availability. At this point she is not having any signs of significant infection or sepsis. Continuing antibiotics may be appropriate. However she is not a peer to be getting acutely imminently sick. As such the concern for infection in that way has diminished. However pain control is still moderate and so transfer or treatment here will still be appropriate for pain control.
[2023-06-25] MEDS: cefTRIAXone 1 GM in SODIUM CHLORIDE 0.9% MINIBAG 100 ML IV SCH (21:05)
--- NOTE | 2023-06-25 22:08 | ED Physician Documentation ---
ED Addendum - Addendum Addendum: 06/25/23 22:08 No changes during my shift. Patient signed out to the oncoming emergency department physician.
[2023-06-25] MEDS: DROPERIDOL 5 MG/2 ML VIAL IVP PRN (22:32)
[2023-06-26 07:28] LABS: BASOPHILS # (AUTO) 0.1 10^3/uL (0.0-0.1); BASOPHILS % (AUTO) 0.7 %; EOSINOPHILS # (AUTO) 0.3 10^3/uL (0.0-0.7); EOSINOPHILS % (AUTO) 4.1 %; HCT - HEMATOCRIT 38.4 % (37.0-47.0); LYMPHOCYTES # (AUTO) 2.2 10^3/uL (1.5-3.5); LYMPHOCYTES % (AUTO) 31.3 %; MEAN CORPUSCULAR HEMOGLOBIN 31.7 pg (27.0-31.0); MEAN CORPUSCULAR HGB CONC 33.9 g/dL (32.0-36.0); MEAN CORPUSCULAR VOLUME 93.7 fL (81.0-99.0); MEAN PLATELET VOLUME 8.4 fL (7.9-10.8); MONOCYTES # (AUTO) 0.7 10^3/uL (0.0-1.0); MONOCYTES % (AUTO) 9.5 %; NEUTROPHILS # (AUTO) 3.9 10^3/uL (1.5-6.6); NEUTROPHILS % (AUTO) 54.1 %; PLT - PLATELET COUNT 359 10^3/uL (130-450); RED CELL DISTRIBUTION WIDTH 11.8 % (12.0-15.0); WHITE BLOOD COUNT 7.2 x10^3/uL (4.8-10.8)
[2023-06-26 07:47] LABS: ALBUMIN 3.8 g/dL (3.2-5.5); ALBUMIN/GLOBULIN RATIO 1.7 (1.0-2.2); BILIRUBIN,TOTAL 0.6 mg/dL (0.2-1.0); CALCIUM 9.1 mg/dL (8.5-10.3); CREATININE 0.6 mg/dL (0.6-1.3); POTASSIUM 3.3 mmol/L (3.5-4.5)
--- NOTE | 2023-06-26 08:10 | ED Physician Documentation ---
ED Addendum - Addendum Addendum: 06/26/23 Patient signed out to me at shift change. She is boarding in the emergency department awaiting urology consultation. Unfortunately attempts to transfer yesterday were not successful to facility with urology capabilities as we do not have coverage yesterday. Dr. Mills is back on-call this morning. Patient presented on the and was found to have a right proximal ureter stone measuring 7 mm. She did have an elevated white count and difficulties with managing pain. She also had a temperature of 37.9.White blood cell count remained elevated yesterday. She has been on Rocephin. Unfortunately blood cultures and urine culture were not obtained. This morning patient still reports having some issues with pain control And nausea. Reports vomiting up apple juice she tried to drink this morning. Has not had any solid food this morning.. Repeat labs show normal white count. Normal renal function. No fevers. I presented the case to Dr. Mills who plans to add her onto the OR schedule today for placement of a ureter stent. Patient has been made aware. She is NPO. Dr. Mills believes that she will likely be able to discharge home after stent procedure so will remain in the emergency department at this time. Departure - Departure Disposition: ED Transfer to [facility] Clinical Impression: Renal calculi, Ureteral calculus, right, Intractable abdominal pain Condition: Good Discharge Date/Time: 06/26/23 12:45
--- NOTE | 2023-06-26 09:20 | CONSULTATION NOTE ---
Referring Provider Name of Referring Provider:: Dr Yen Consult Date: 06/26/23 Chief Complaint - Chief Complaint Chief Complaint: Left flank pain History of Present Illness - Admitted From Admitted From:: ER to OR - History Obtained From Records Reviewed: Hospital History obtained from: Patient and ER physician Exam Limitations: none - History of Present Illness HPI Comment/Other: 38-year-old woman with long history of kidney stones who reportedly has had multiple interventions including shockwave lithotripsy and ureteroscopy and stents procedures. She states she normally passed her stones without too much issue though. She presented to the hospital after 4 days of increasing pain and low-grade fevers at home. Her pain was in the left flank. She presented here on June 23. She was found to have a 7 mm proximal right ureteral stone with ipsilateral hydroureteronephrosis. She had a low white count of 12,000 and fevers up to 37.9 Celsius. Urology was unavailable and she was recommended to be transferred to an outside hospital. However, this ended up not being possible and she has been boarded in the hospital since. She has been kept on ceftriaxone and her white count has improved to a normal 7000 and she has not had any fevers since Monday. Urology was consulted this morning to discuss possible options. At bedside patient states she still continues to have pain along with nausea and vomiting. She appears nontoxic.Unfortunately no urine culture was sent. And no blood cultures were sent. History - Past Medical History Cardiovascular: reports: Hypertension, High cholesterol Respiratory: reports: Asthma, Pneumonia Endocrine/Autoimmune: reports: HyPOthyroidism DIRECTOR OF OPTIMIZATION: reports: Other : reports: Chronic bladder infection, Kidney stones HEENT: reports: None Psych: reports: Depression Derm: reports: None MRSA Hx?: Yes - Past Surgical History HEENT: reports: Tonsil/Adenoidectomy - Family & Social History Social History Notes: She does not smoke. She rarely has alcohol abuse problems. 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 She is in the middle of divorce proceedings from her and is received a restraining order from him. Because of her multiple suicide attempts she is temporary lost custody of her kids - Substance History Use: Uses substance without health or social issues: NONE - POLST Patient has POLST: No POLST Status: Full Code Meds/Allgy - Home Medications Home Medications: Ambulatory Orders Medication Instructions Recorded Confirmed cloNIDine [Catapres] 0.2 mg PO QPM 05/22/15 06/25/23 Fluoxetine HCl 40 mg PO DAILY 02/02/17 06/25/23 Quetiapine Fumarate [Seroquel] 50 mg PO TID PRN 02/21/17 06/25/23 HYDROcod/ACETAM 5/325 [[place] 5/325] 1 - 2 tablet PO Q6H PRN #14 tablet 06/24/23 Ondansetron Odt [Zofran Odt] 4 mg TL Q6H PRN #10 tablet 06/24/23 Tamsulosin [Flomax] 1 cap PO DAILY #14 cap 06/24/23 - Allergies Allergies/Adverse Reactions: Allergies Allergy/AdvReac Type Severity Reaction Status Date / Time morphine Allergy Nausea Verified 06/24/23 11:49 sulfamethoxazole AdvReac Intermediate Emesis Verified 06/24/23 11:49 [From Bactrim] trimethoprim [From Bactrim] AdvReac Intermediate Emesis Verified 06/24/23 11:49 cilantro Allergy Respiratory Uncoded 06/24/23 11:49 Exam - Vital Signs Vital Signs: Vital Signs x48h Temp Pulse Resp BP Pulse Ox 06/26/23 07:34 36.4 C L 60 16 106/67 97 06/26/23 06:30 58 L 14 112/64 96 06/26/23 05:42 36.2 C L 88 20 147/99 H 94 06/26/23 04:49 36.6 C 71 16 151/104 H 97 06/26/23 04:00 36.4 C L 62 16 124/73 98 - Physical Exam General Appearance: positive: No acute distress Respiratory: positive: Breath sounds nml Cardiovascular: positive: Regular rate & rhythm Conclusion and Plan - Lab Results Laboratory Results 06/26/23 07:17: Sodium 136, Potassium 3.3 L, Chloride 104, Carbon Dioxide 25, Anion Gap 7.0, BUN 5 L, Creatinine 0.6, Estimated GFR (MDRD) 111, Glucose 116 H, Calcium 9.1, Total Bilirubin 0.6, AST 11, ALT 9 L, Alkaline Phosphatase 47, Total Protein 6.0 L, Albumin 3.8, Globulin 2.2, Albumin/Globulin Ratio 1.7 06/26/23 07:17: WBC 7.2, RBC 4.10 L, Hgb 13.0, Hct 38.4, MCV 93.7, MCH 31.7 H, MCHC 33.9, RDW 11.8 L, Plt Count 359, MPV 8.4, Neut # (Auto) 3.9, Lymph # (Auto) 2.2, [place] # (Auto) 0.7, Eos # (Auto) 0.3, Baso # (Auto) 0.1, Absolute Nucleated RBC 0.00, Nucleated RBC % 0.0 06/25/23 02:08: Urine Color YELLOW, Urine Clarity HAZY, Urine pH 6.0, Ur Specific [place] 1.015, Urine Protein NEGATIVE, Urine Glucose (UA) NEGATIVE, Urine Ketones NEGATIVE, Urine Occult Blood LARGE H, Urine Nitrite NEGATIVE, Urine Bilirubin NEGATIVE, Urine Urobilinogen 0.2 (NORMAL), Ur Leukocyte Esterase SMALL H, Urine RBC 6-10 H, Urine WBC 0-3, Ur Squamous Epith Cells MOD Squamous H, Urine Bacteria Rare, Ur Microscopic Review INDICATED 06/25/23 00:48: Lactic Acid 1.0 06/25/23 00:48: Sodium 136, Potassium 4.1, Chloride 107, Carbon Dioxide 22, Anion Gap 7.0, BUN 7, Creatinine 0.7, Estimated GFR (MDRD) 93, Glucose 99, Calcium 8.5 06/25/23 00:48: WBC 12.9 H, RBC 4.45, Hgb 13.9, Hct 41.2, MCV 92.6, MCH 31.2 H, MCHC 33.7, RDW 11.7 L, Plt Count 406, MPV 8.6, Neut # (Auto) 9.3 H, Lymph # (Auto) 2.5, [place] # (Auto) 0.8, Eos # (Auto) 0.1, Baso # (Auto) 0.1, Absolute Nucleated RBC 0.00, Nucleated RBC % 0.0 06/24/23 21:29: Nasal Influenza B PCR NOT DETECTED, Nasal Influenza A PCR NOT DETECTED, Nasal RSV (PCR) NOT DETECTED, Nasal SARS-CoV-2 (PCR) NOT DETECTED 06/24/23 17:06: Urine Color YELLOW, Urine Clarity HAZY, Urine pH 6.0, Ur Specific [place] >=1.030 H, Urine Protein TRACE, Urine Glucose (UA) NEGATIVE, Urine Ketones NEGATIVE, Urine Occult Blood LARGE H, Urine Nitrite NEGATIVE, Urine Bilirubin NEGATIVE, Urine Urobilinogen 0.2 (NORMAL), Ur Leukocyte Esterase NEGATIVE, Urine RBC TNTC H, Urine WBC 6-10 H, Ur Squamous Epith Cells FEW Squamous, Urine Crystals 0-2 Calcium Oxalate, Urine Bacteria Few, Ur Microscopic Review INDICATED, Urine Culture Comments NOT INDICATED 06/24/23 12:50: Urine Color YELLOW, Urine Clarity CLEAR, Urine pH 6.0, Ur Specific [place] >=1.030 H, Urine Protein 30 H, Urine Glucose (UA) NEGATIVE, Urine Ketones NEGATIVE, Urine Occult Blood LARGE H, Urine Nitrite NEGATIVE, Urine Bilirubin NEGATIVE, Urine Urobilinogen 0.2 (NORMAL), Ur Leukocyte Esterase TRACE H, Urine RBC 11-25 H, Urine WBC 4-5, Ur Squamous Epith Cells MANY Squamous H, Amorphous Sediment Moderate, Urine Bacteria Few, Urine Mucus Moderate Strands, Ur Microscopic Review INDICATED, Urine Culture Comments NOT INDICATED 06/24/23 12:50: Urine HCG, Qual NEGATIVE 06/24/23 12:00: Sodium 136, Potassium 3.9, Chloride 104, Carbon Dioxide 24, Anion Gap 8.0, BUN 9, Creatinine 0.9, Estimated GFR (MDRD) 70 L, Glucose 123 H, Calcium 9.5, Total Bilirubin 0.5, AST 16, ALT 12, Alkaline Phosphatase 58, Total Protein 7.4, Albumin 4.4, Globulin 3.0, Albumin/Globulin Ratio 1.5, Lipase 89 H 06/24/23 12:00: WBC 11.2 H, RBC 4.90, Hgb 15.0, Hct 45.0, MCV 91.8, MCH 30.6, MCHC 33.3, RDW 11.9 L, Plt Count 468 H, MPV 8.5, Neut # (Auto) 7.5 H, Lymph # (Auto) 2.5, [place] # (Auto) 0.8, Eos # (Auto) 0.3, Baso # (Auto) 0.1, Absolute Nucleated RBC 0.00, Nucleated RBC % 0.0 - Diagnostic Imaging Results Diagnostic Imaging Results: positive: Final report reviewed, Read independently - Diagnosis Diagnosis: Right ureteral stone. Right flank pain - Consultation Note Consultation Note: 38-year-old woman with long history of kidney stones with 7 mm proximal right ureteral stone and likely recent infection - Plan Plan: To the OR today for cystoscopy, right ureteral stent placement. The risk, benefits, alternatives were discussed with the patient. Specific risks of infection, pain, stent colic, need for additional procedures were discussed We discussed that she will need definitive stone management as an outpatient. I prefer to place a stent that she had a likely infection and I think that going up to the stone now would not put her at higher risk for bacteremia etc. We will tend to get her home after this procedure with a course of antibiotics which would have to be empiric is no cultures were sent The patient states understanding and consents to the above plan
[2023-06-26] MEDS: POTASSIUM BICARB 25 MEQ TABLET PO ONE (10:17)
[2023-06-26] MEDS: HYDROmorphone 0.5 MG/0.5 ML SYRINGE IVP PRN (10:17)
[2023-06-26] MEDS ORDERED: MIDAZOLAM 2 MG/2 ML VIAL ONE (12:34)
[2023-06-26] MEDS ORDERED: fentaNYL 100 MCG/2 ML VIAL ONE (12:34)
[2023-06-26] MEDS ORDERED: DEXMEDETOMIDINE 200 MCG/2 ML VIAL ONE (12:37)
[2023-06-26] MEDS ORDERED: PROPOFOL 200 MG/20 ML VIAL IVP ONE (12:37)
--- NOTE | 2023-06-26 12:45 | ANESTHESIA ---
Pre-Anesthesia VS, & Labs - Diagnosis Diagnosis Right ureteral stone Right flank pain - Procedure CYSTO/STENT PLACEMENT Vital Signs: Temp Pulse Resp BP Pulse Ox O2 Flow Rate 36.9 C 75 16 99/68 100 06/26/23 12:28 06/26/23 12:28 06/26/23 12:28 06/26/23 12:28 06/26/23 12:28 Height: 5 ft 4 in Weight (kg): 70.216 kg Body Mass Index: 26.5 BMI Classification: Overweight - NPO Last Fluid Intake: 0800, APPLE JUICE; N/V Last Food Intake: >8HR - Is Patient ?: No (NEG HCG ON 06/23) - Lab Results Current Lab Results: Laboratory Tests 06/26/23 07:17: Sodium 136, Potassium 3.3 L, Chloride 104, Carbon Dioxide 25, Anion Gap 7.0, BUN 5 L, Creatinine 0.6, Estimated GFR (MDRD) 111, Glucose 116 H, Calcium 9.1, Total Bilirubin 0.6, AST 11, ALT 9 L, Alkaline Phosphatase 47, Total Protein 6.0 L, Albumin 3.8, Globulin 2.2, Albumin/Globulin Ratio 1.7 06/26/23 07:17: WBC 7.2, RBC 4.10 L, Hgb 13.0, Hct 38.4, MCV 93.7, MCH 31.7 H, MCHC 33.9, RDW 11.8 L, Plt Count 359, MPV 8.4, Neut # (Auto) 3.9, Lymph # (Auto) 2.2, [place] # (Auto) 0.7, Eos # (Auto) 0.3, Baso # (Auto) 0.1, Absolute Nucleated RBC 0.00, Nucleated RBC % 0.0 06/25/23 00:48: Lactic Acid 1.0 06/25/23 00:48: Sodium 136, Potassium 4.1, Chloride 107, Carbon Dioxide 22, Anion Gap 7.0, BUN 7, Creatinine 0.7, Estimated GFR (MDRD) 93, Glucose 99, Calcium 8.5 06/25/23 00:48: WBC 12.9 H, RBC 4.45, Hgb 13.9, Hct 41.2, MCV 92.6, MCH 31.2 H, MCHC 33.7, RDW 11.7 L, Plt Count 406, MPV 8.6, Neut # (Auto) 9.3 H, Lymph # (Auto) 2.5, [place] # (Auto) 0.8, Eos # (Auto) 0.1, Baso # (Auto) 0.1, Absolute Nucleated RBC 0.00, Nucleated RBC % 0.0 06/24/23 12:00: Sodium 136, Potassium 3.9, Chloride 104, Carbon Dioxide 24, Anion Gap 8.0, BUN 9, Creatinine 0.9, Estimated GFR (MDRD) 70 L, Glucose 123 H, Calcium 9.5, Total Bilirubin 0.5, AST 16, ALT 12, Alkaline Phosphatase 58, Total Protein 7.4, Albumin 4.4, Globulin 3.0, Albumin/Globulin Ratio 1.5, Lipase 89 H 06/24/23 12:00: WBC 11.2 H, RBC 4.90, Hgb 15.0, Hct 45.0, MCV 91.8, MCH 30.6, MCHC 33.3, RDW 11.9 L, Plt Count 468 H, MPV 8.5, Neut # (Auto) 7.5 H, Lymph # (Auto) 2.5, [place] # (Auto) 0.8, Eos # (Auto) 0.3, Baso # (Auto) 0.1, Absolute Nucleated RBC 0.00, Nucleated RBC % 0.0 Fish Bones: 06/26/23 07:17 06/26/23 07:17 Home Medications and Allergies Active Medications Acetaminophen (Acetaminophen 325 Mg Tablet) 650 mg PO QID OPAL Last Admin: 06/26/23 08:38 Dose: 650 mg Droperidol (Droperidol 5 Mg/2 Ml Vial) 0.625 mg IVP Q6H PRN PRN Reason: Nausea / Vomiting Last Admin: 06/26/23 05:47 Dose: 0.625 mg Hydromorphone HCl (Hydromorphone 1 Mg/Ml Carpuject) 1 mg IVP Q3H PRN PRN Reason: PAIN 5-7 Last Admin: 06/26/23 07:45 Dose: 1 mg Hydromorphone HCl (Hydromorphone 0.5 Mg/0.5 Ml Syringe) 0.5 mg IVP Q2H PRN PRN Reason: Severe Pain (Level 7-10) Last Admin: 06/26/23 10:17 Dose: 0.5 mg Ceftriaxone Sodium 1 gm/ (Sodium Chloride) 100 mls @ 200 mls/hr IV BID [facility] Last Infusion: 06/26/23 09:50 Dose: Infused Ketorolac Tromethamine (Ketorolac 15 Mg/Ml Vial) 15 mg IVP BID [facility] Stop: 06/30/23 12:59 Last Admin: 06/26/23 08:38 Dose: 15 mg Tamsulosin HCl (Tamsulosin 0.4 Mg Capsule) 0.4 mg PO DAILY [facility] Last Admin: 06/26/23 08:38 Dose: 0.4 mg cloNIDine [Catapres] 0.2 mg PO QPM 05/22/15 Fluoxetine HCl 40 mg PO DAILY 02/02/17 Quetiapine Fumarate [Seroquel] 50 mg PO TID PRN 02/21/17 Allergies/Adverse Reactions: Allergies Allergy/AdvReac Type Severity Reaction Status Date / Time morphine Allergy Nausea Verified 06/24/23 11:49 sulfamethoxazole AdvReac Intermediate Emesis Verified 06/24/23 11:49 [From Bactrim] trimethoprim [From Bactrim] AdvReac Intermediate Emesis Verified 06/24/23 11:49 cilantro Allergy Respiratory Uncoded 06/24/23 11:49 Anes History & Medical History - Anesthetic History Anesthesia Complications: reports: No previous complications Family history of Anesthesia Complications: Denies - Medical History Pulmonary: reports: Asthma (NO RECENT INHALER USE,ER ADMISSIONS OR INTUBATIONS), Pneumonia Urinary: reports: Chronic bladder infection, Kidney stones Endocrine/Autoimmune: reports: HyPOthyroidism Blood Disorders: reports: None Skin: reports: None Smoking Status: Never smoker Psychosocial: reports: Substance abuse, Alcohol (STATES OCCASIONAL), Cannabis (OCCASIONAL CANNABIS) - Surgical History Eyes Ears Nose Throat (EENT): reports: Tonsil/Adenoidectomy Urologic: reports: Kidney stents, Ureterolithotomy (stones) Exam General: Oriented x3, Cooperative Dental: WNL Mouth Openin Fingerbreadth Neck Mobility: Normal Mallampati classification: II Thyromental Distance: 4-6 cm Plan Anesthesia Type: General Consent for Procedure(s) Verified and Reviewed: Yes Code Status: Attempt Resuscitation ASA classification: 2-Mild systemic disease Is this case an emergency?: No
[2023-06-26] MEDS ORDERED: fentaNYL 100 MCG/2 ML VIAL IVP PRN (12:48)
[2023-06-26] MEDS ORDERED: HYDROmorphone 0.5 MG/0.5 ML SYRINGE IVP PRN (12:48)
[2023-06-26] MEDS ORDERED: ATROPINE ABBOJECT 1 MG/10 ML SYRINGE IVP PRN (12:48)
[2023-06-26] MEDS ORDERED: ePHEDrine 50 MG/ML VIAL IVP PRN (12:48)
[2023-06-26] MEDS ORDERED: ONDANSETRON 4 MG/2 ML VIAL IVP PRN ×2 (12:48→13:14)
[2023-06-26] MEDS ORDERED: NALOXONE 0.4 MG/ML VIAL IVP PRN (12:48)
[2023-06-26] MEDS ORDERED: METOCLOPRAMIDE 10 MG/2 ML VIAL IVP PRN (12:48)
[2023-06-26] MEDS ORDERED: LIDOCAINE-PF 2% 10 ML AMP SUBQ ONE (12:57)
[2023-06-26] MEDS ORDERED: LACTATED RINGERS 1,000 ML IV SCH (13:00)
[2023-06-26] MEDS ORDERED: LIDOCAINE 2% URO-JET 5 ML SYRINGE UR ONE (13:03)
[2023-06-26] MEDS ORDERED: ONDANSETRON 4 MG/2 ML VIAL ONE (13:04)
[2023-06-26] MEDS ORDERED: DEXAMETHASONE 4 MG/ML VIAL ONE (13:04)
[2023-06-26] MEDS ORDERED: oxyCODONE 5 MG TABLET PO PRN (13:14)
--- NOTE | 2023-06-26 13:21 | Discharge Plan ---
Discharge Plan Problem Reviewed?: Yes Disposition: Home, Self Care Condition: Good Prescriptions: Cefuroxime Axetil [Cefuroxime] 500 mg PO BID #14 tablet Docusate Sodium 100Mg Capsule [Colace 100Mg Capsule] 100 mg PO DAILY #14 cap Tamsulosin [Flomax] 1 cap PO DAILY #14 cap HYDROcod/ACETAM 5/325 [[place] 5/325] 1 - 2 tablet PO Q6H PRN #14 tablet PRN Reason: Pain oxyBUTYnin chloride [Oxybutynin Chloride ER] 5 mg PO DAILY #21 tab Ondansetron Odt [Zofran Odt] 4 mg TL Q6H PRN #10 tablet PRN Reason: Nausea / Vomiting Diet: Regular Activity Restrictions: No Restrictions Shower Restrictions: No Driving Restrictions: No (no driving when taking pain medications) Instruction Topics: ED Stone Renal W Colic, Stents Ureteral Additional Instructions or Follow Up instructions: You have a right-sided ureteral stent in place. You still have a kidney stone on the right side which needs to be dealt with in the future. Dr. Mills's office will contact you for follow-up in the next several weeks No Smoking: If you smoke, Please STOP! Call for help. Follow-up with: Ruslan Mills MD [Provider Admit Priv/Credential] -
[2023-06-26] MEDS: LACTATED RINGERS 1,000 ML IV ONE (13:23)
--- NOTE | 2023-06-26 13:25 | OPERATIVE REPORT ---
Operative Report - General Procedure Date: 06/26/23 Planned Procedure: Cystoscopy, right ureteral stent placement Pre-Op Diagnosis: Right proximal ureteral stone Procedure Performed: Cystoscopy, right ureteral stent placement Post Op Diagnosis: Right proximal ureteral stone - Procedure Note Primary Surgeon: Gene Anesthesia Provider: FREEDOM Polo Anesthesia Technique: General LMA Pathology: none Estimated Blood Loss (mL): 0 Indications: Right 7mm proximal ureteral stone Findings: Radioopaque stone on right in proximal ureter, relatively medialized Complications: none - Other Other Information/Narrative: After informed consent was obtained the patient was brought to the OR and laid in the supine position. The patient was anesthetized per anesthesia protocols and prepped and draped in usual sterile fashion. She was in the dorsolithotomy position. A formal timeout was performed reconfirming the patient, procedure and laterality. A 22 [place] scope was advanced easily into urinary bladder. The bladder was inspected and full and there were no masses, lesions or other concerns. Her trigone was mildly injected but otherwise she did not appear to have a significant cystitis. Fluoroscopy was performed and a radiopacity about 7 mm in size consistent with stone seen on imaging was seen at the area of the expected proximal right ureter. A sensor wire was placed through her right UO and passed the stone with curling noted in the kidney. A 6 [place] 24 cm double-J stent was placed with good curling noted in the kidney and good curling noted in the bladder. There was some E flux of some slightly dark urine but it did not appear grossly purulent. The bladder was emptied and a Uro-Jet was placed. This concluded the procedure and the patient tolerated the procedure well. She will be discharged today and follow-up in the next few weeks for definitive stone management.
[2023-06-26] MEDS: LIDOCAINE 2% URO-JET 5 ML SYRINGE UR ONE (13:27)
--- NOTE | 2023-06-26 13:28 | DISCHARGE SUMMARY ---
"Discharge Summary Admit Date: 06/24/23 Discharge Date: 06/26/23 Discharging Provider: Gene Condition at Discharge: Good Discharge Disposition: 01 Home, Self Care - DIAGNOSES Admission Diagnoses: Right flank pain Right ureteral stone Discharge Diagnoses with Status of Each Condition: Right flank pain-resolved Right ureteral stone- present - HPI History of Present Illness: 38-year-old female presented to the hospital with right flank pain and low-grade fevers on June 23. She was found to have a right 7 mm proximal ureteral stone and leukocytosis but no cultures were sent and her urinalysis did appear benign. She was kept in the ER with plan to transfer to outside hospital as there was no urology coverage at that time. No transfer was able to be performed the following 2 days and so on June [address] Mills was consulted - CONSULTS | PROCEDURES Consultations: Urology- Dr Mills Procedures: Cystoscopy right ureteral stent - HOSPITAL COURSE Hospital Course: She was kept in the ER with plan to transfer to outside hospital as there was no urology coverage at that time. No transfer was able to be performed the following 2 days and so on June [address] Mills was consulted. She had been kept on ceftriaxone through her stay and her leukocytosis resolved. Her last fever was on June 23. She was taken to the OR for right ureteral stents on June 25. She was discharged afterwards with empiric cefuroxime antibiotics, oxybutynin, pain medications. She will plan to follow-up for definitive stone management with Dr. Mills - ALLERGIES Allergies/Adverse Reactions: Allergies Allergy/AdvReac Type Severity Reaction Status Date / Time morphine Allergy Nausea Verified 06/24/23 11:49 sulfamethoxazole AdvReac Intermediate Emesis Verified 06/24/23 11:49 [From Bactrim] trimethoprim [From Bactrim] AdvReac Intermediate Emesis Verified 06/24/23 11:49 cilantro Allergy Respiratory Uncoded 06/24/23 11:49 - MEDICATIONS Home Medications: Ambulatory Orders Medication Instructions Recorded Confirmed cloNIDine [Catapres] 0.2 mg PO QPM 05/22/15 06/25/23 Fluoxetine HCl 40 mg PO DAILY 02/02/17 06/25/23 Quetiapine Fumarate [Seroquel] 50 mg PO TID PRN 02/21/17 06/25/23 HYDROcod/ACETAM 5/325 [[place] 5/325] 1 - 2 tablet PO Q6H PRN #14 tablet 06/24/23 Ondansetron Odt [Zofran Odt] 4 mg TL Q6H PRN #10 tablet 06/24/23 Tamsulosin [Flomax] 1 cap PO DAILY #14 cap 06/24/23 Cefuroxime Axetil [Cefuroxime] 500 mg PO BID #14 tablet 06/26/23 Docusate Sodium 100Mg Capsule 100 mg PO DAILY #14 cap 06/26/23 [Colace 100Mg Capsule] oxyBUTYnin chloride [Oxybutynin 5 mg PO DAILY #21 tab 06/26/23 Chloride ER] - PHYSICAL EXAM AT DISCHARGE General Appearance: positive: No acute distress Cardiovascular: positive: Regular rate & rhythm - LABS Result Diagrams: 06/26/23 07:17 06/26/23 07:17 - DIAGNOSTIC IMAGING Diagnostic Imaging Results: Final report reviewed, Read independently - SEPSIS Current Stage of Sepsis: Ruled out - QUALITY (Female Hip Fx Only) Was patient sent home on osteoporosis medication?: No - FOLLOW UP Follow Up: She will be contacted for followup with Dr Mills - TIME SPENT Time Spent in Discharge (Minutes): 30"
[2023-06-26] MEDS: oxyCODONE 5 MG TABLET ONE (14:22)
[2023-06-26 14:41] VITALS: BP 120/83; O2SAT 99
--- NOTE | 2023-06-26 16:29 | ANESTHESIA POST OP EVALUATION ---
Anesthesia Post Eval - Post Anesthesia Eval Vitals: Last Vital Signs Temp 37 C 06/26/23 14:05 Pulse 79 06/26/23 14:35 Resp 14 06/26/23 14:35 BP 120/83 H 06/26/23 14:35 Pulse Ox 99 06/26/23 14:35 O2 Flow Rate CV Function Including HR & BP: Stable Pain Control: Satisfactory Nausea & Vomiting: Negative Mental Status: Baseline Respiratory Status: Airway Patent Hydration Status: Satisfactory Anesthesia Complications: None
--- NOTE | 2023-06-26 20:07 | XRAY Report ---
PROCEDURE: OR C-Arm Procedure INDICATIONS: URETERAL STENT PLACEMENT, RIGHT FLUORO TIME: 0.01 min TECHNIQUE: 2 C-arm images COMPARISON: CT KUB dated 06/24/2023 FINDINGS: Images demonstrate placement of a right ureteral stent IMPRESSION: C-arm imaging utilized for placement of a right ureteral stent. Reviewed by: Chang Donnelly MD on 06/26/2023 8:06 PM PDT Approved by: Chang Donnelly MD on 06/26/2023 8:06 PM PDT Station ID: [id number]
== END 2023-06-26 08:39 | disposition home or self-care (01) ==
LOC: ED 11:32 → SDS 06-26 08:38
PROVIDERS: ATTEND Urology
DX: N13.2 Hydronephrosis with renal and ureteral calculous obstruction (principal); J45.909 Unspecified asthma, uncomplicated; I10 Essential (primary) hypertension; Z11.52 Encounter for screening for COVID-19; Z32.02 Encounter for pregnancy test, result negative; Z63.5 Disruption of family by separation and divorce; Z79.899 Other long term (current) drug therapy; Z88.2 Allergy status to sulfonamides; Z88.5 Allergy status to narcotic agent; Z91.018 Allergy to other foods; Z91.51 Personal history of suicidal behavior
CPT/HCPCS: 36415; 52332; 74176; 80048; 80053; 81001; 81025; 83605; 83690; 85025; 87637; A9270; C2617; J1170; J7040; J7120; 81003; 87086; 96365; 96366; 96375; 96376; 99285

== ENCOUNTER 2023-07-03 10:42 | Day surgery (SDC) | payer MEDICAID ==
[~2023-07-03 10:42] MED LIST changes: -SODIUM CHLORIDE 0.9% 1,000 ML IV ONE; +ceFAZolin 2 GM VIAL ONE
[2023-07-03] MEDS: LACTATED RINGERS 1,000 ML IV ONE ×2 (10:58→13:16)
[2023-07-03 11:38] LABS: HCG UR QUAL NEGATIVE
[2023-07-03] MEDS ORDERED: KETAMINE 200 MG/20 ML VIAL ONE (12:13)
[2023-07-03] MEDS ORDERED: fentaNYL 100 MCG/2 ML VIAL ONE ×2 (12:13→13:41)
[2023-07-03] MEDS ORDERED: LIDOCAINE-PF 2% 10 ML AMP SUBQ ONE (12:13)
[2023-07-03] MEDS ORDERED: PROPOFOL 200 MG/20 ML VIAL IVP ONE (12:13)
[2023-07-03] MEDS ORDERED: MIDAZOLAM 2 MG/2 ML VIAL ONE (12:13)
[2023-07-03] MEDS ORDERED: KETOROLAC 30 MG/ML VIAL ONE (12:13)
[2023-07-03] MEDS ORDERED: ONDANSETRON 4 MG/2 ML VIAL ONE (12:13)
[2023-07-03] MEDS ORDERED: LIDOCAINE 2% URO-JET 5 ML SYRINGE UR ONE (12:23)
[2023-07-03] MEDS ORDERED: DEXAMETHASONE 4 MG/ML VIAL ONE (12:57)
[2023-07-03] MEDS ORDERED: ONDANSETRON 4 MG/2 ML VIAL IVP PRN ×2 (13:09→13:18)
[2023-07-03] MEDS ORDERED: ATROPINE ABBOJECT 1 MG/10 ML SYRINGE IVP PRN (13:18)
[2023-07-03] MEDS ORDERED: ePHEDrine 50 MG/ML VIAL IVP PRN (13:18)
[2023-07-03] MEDS ORDERED: METOCLOPRAMIDE 10 MG/2 ML VIAL IVP PRN (13:18)
[2023-07-03] MEDS ORDERED: NALOXONE 0.4 MG/ML VIAL IVP PRN (13:18)
[2023-07-03] MEDS ORDERED: HYDROmorphone 0.5 MG/0.5 ML SYRINGE IVP PRN (13:18)
[2023-07-03] MEDS ORDERED: MORPHINE 2 MG/ML CARPUJECT IVP PRN (13:18)
--- NOTE | 2023-07-03 13:19 | Discharge Plan ---
Discharge Plan Problem Reviewed?: Yes Disposition: Home, Self Care Condition: Good Prescriptions: Docusate Sodium 100Mg Capsule [Colace 100Mg Capsule] 100 mg PO DAILY #7 cap oxyCODONE [Roxicodone] 5 mg PO Q6H PRN #4 tablet PRN Reason: Pain Diet: Regular Activity Restrictions: No Restrictions Shower Restrictions: No Driving Restrictions: Yes (no driving when taking pain medications) Instruction Topics: Stents Ureteral No Smoking: If you smoke, Please STOP! Call for help. Follow-up with: Ruslan Mills MD [Provider Admit Priv/Credential] -
--- NOTE | 2023-07-03 13:21 | OPERATIVE REPORT ---
Operative Report - General Procedure Date: 07/03/23 Planned Procedure: Cystoscopy, right ureteroscopy, laser lithotripsy, stent exchange Pre-Op Diagnosis: Right ureteral stone Procedure Performed: Cystoscopy, right ureteroscopy, laser lithotripsy, stent exchange Post Op Diagnosis: Right ureteral stone - Procedure Note Primary Surgeon: Gene Anesthesia Provider: FREEDOM Stevens Anesthesia Technique: General LMA Pathology: right kidney stone Findings: 7mm proximal ureteral stone Complications: none - Other Other Information/Narrative: After informed sent was obtained the patient was brought to the OR and laid in the supine position. The patient was anesthetized per anesthesia protocols and prepped and draped in usual sterile fashion in the dorsolithotomy position. A formal timeout was performed confirming the patient, procedure and laterality. A 22 [place] scope was advanced easily into the urinary bladder. The bladder was inspected and full and there were no masses lesions or other concerns. A stent was emanating from the right ureteral orifice. A sensor wire was placed next to this up into the kidney. A 7 mm radiopaque stone could be seen in the proximal ureter still. The old stent was grasped and removed. A flexible ureteroscope was then advanced up the ureter to her proximal ureter where a stone was seen. It was yellow/dark green. A 200 m laser fiber was used a power of 0.8 and a rate of 8 to fragment the stone into small pieces and dust. These were blown back into the kidney. The kidney was inspected and full and there were no significant stones of size. A basket was used to grasp a disability representative stone fragments and was sent for analysis. The ureter was cleared under direct visualization. A 6 [place] 26 cm double-J stent was placed with good curling of the kidney and good curling noted in the bladder. The bladder was emptied and a Uro-Jet was placed. A string attached to the stent was taped to the pubic area. This concluded the procedure and the patient tolerated the procedure well. She was brought to PACU without further incident. She will remove her stent herself in 3 days time
[2023-07-03] MEDS: fentaNYL 100 MCG/2 ML VIAL IVP PRN (13:45)
[2023-07-03] MEDS ORDERED: LACTATED RINGERS 1,000 ML IV SCH (14:00)
[2023-07-03 14:11] VITALS: BP 127/78; O2SAT 96
[2023-07-03] MEDS ORDERED: oxyCODONE 5 MG TABLET ONE (14:14)
[2023-07-03] MEDS: oxyCODONE 5 MG TABLET PO PRN (14:15)
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
--- NOTE | 2023-07-03 14:21 | ANESTHESIA POST OP EVALUATION ---
Anesthesia Post Eval - Post Anesthesia Eval Vitals: Last Vital Signs Temp 18 C L 07/03/23 14:12 Pulse 78 07/03/23 14:12 Resp 18 07/03/23 14:12 BP 127/78 07/03/23 14:12 Pulse Ox 96 07/03/23 14:12 O2 Flow Rate CV Function Including HR & BP: Stable Pain Control: Satisfactory Nausea & Vomiting: Negative Mental Status: Baseline Respiratory Status: Airway Patent Hydration Status: Satisfactory Anesthesia Complications: None
--- NOTE | 2023-07-03 15:30 | XRAY Report ---
PROCEDURE: OR C-Arm Procedure INDICATIONS: right ureteral stent exchange FLUORO TIME: 0.01 MIN TECHNIQUE: 3 fluoroscopic images of the right upper quadrant. COMPARISON: CT KUB 06/24/2023. FINDINGS: Right double-J ureteral stent. The superior aspect projecting in the expected region of the collectin g system at the last image. IMPRESSION: Intraoperative guidance provided. Reviewed by: Salas Lares MD on 07/03/2023 3:29 PM PDT Approved by: Salas Lares MD on 07/03/2023 3:29 PM PDT Station ID: [id number]
[2023-07-08 20:08] LABS: CALCIUM OXALATE DIHYDRATE 70 % (.); CALCIUM OXALATE MONOHYDRATE 20 % (.); HYDROXYAPATITE 10 % (.); STONE COLOR Tan (.); STONE SIZE 4x3 mm (.); STONE WEIGHT 13 mg (.)
== END 2023-07-03 10:43 | disposition home or self-care (01) ==
LOC: SDS 10:42
PROVIDERS: ATTEND Urology
PROC: 0T768DZ Dilation of Right Ureter with Intraluminal Device, Via Natural or Artificial Opening Endoscopic (ICD-10-PCS; 2023-07-03)
PROC: 0TC68ZZ Extirpation of Matter from Right Ureter, Via Natural or Artificial Opening Endoscopic (ICD-10-PCS; principal; 2023-07-03 13:30)
DX: N20.1 Calculus of ureter (principal); I10 Essential (primary) hypertension
CPT/HCPCS: 52356; 81025; 82365; A9270; C1758; C2617; J3490; J7120

== ENCOUNTER 2023-08-15 13:09 | Emergency (ER) | payer MEDICAID ==
[2023-08-15 14:44] LABS: BASOPHILS # (AUTO) 0.1 10^3/uL (0.0-0.1); BASOPHILS % (AUTO) 0.5 %; EOSINOPHILS % (AUTO) 0.3 %; HCT - HEMATOCRIT 45.4 % (37.0-47.0); HGB - HEMOGLOBIN 15.5 g/dL (12.0-16.0); LYMPHOCYTES # (AUTO) 1.2 10^3/uL (1.5-3.5); LYMPHOCYTES % (AUTO) 11.1 %; MEAN CORPUSCULAR HEMOGLOBIN 30.9 pg (27.0-31.0); MEAN CORPUSCULAR HGB CONC 34.1 g/dL (32.0-36.0); MEAN CORPUSCULAR VOLUME 90.6 fL (81.0-99.0); MEAN PLATELET VOLUME 8.5 fL (7.9-10.8); MONOCYTES # (AUTO) 0.5 10^3/uL (0.0-1.0); MONOCYTES % (AUTO) 4.8 %; PLT - PLATELET COUNT 382 10^3/uL (130-450); RED BLOOD COUNT 5.01 10^6/uL (4.20-5.40); RED CELL DISTRIBUTION WIDTH 11.9 % (12.0-15.0); WHITE BLOOD COUNT 10.9 x10^3/uL (4.8-10.8)
[2023-08-15 14:55] LABS: ALBUMIN 4.9 g/dL (3.2-5.5); ALBUMIN/GLOBULIN RATIO 1.7 (1.0-2.2); BILIRUBIN,TOTAL 0.9 mg/dL (0.2-1.0); CREATININE 0.8 mg/dL (0.6-1.3); POTASSIUM 4.2 mmol/L (3.5-4.5); TOTAL PROTEIN 7.8 g/dL (6.4-8.9)
[2023-08-15 15:08] LABS: BILIRUBIN,URINE NEGATIVE (NEGATIVE); GLUCOSE, URINE (UA) NEGATIVE (NEGATIVE); KETONES,URINE (UA) NEGATIVE (NEGATIVE); LEUKOCYTE ESTERASE, URINE TRACE (NEGATIVE); NITRITE,URINE NEGATIVE (NEGATIVE); OCCULT BLOOD,URINE LARGE (NEGATIVE); PROTEIN,URINE TRACE mg/dL (NEGATIVE); UROBILINOGEN,URINE 0.2 (NORMAL) E.U./dL (NORMAL)
[2023-08-15 15:09] LABS: CLARITY,URINE HAZY (CLEAR)
[2023-08-15 15:10] LABS: HCG UR QUAL NEGATIVE
[2023-08-15 15:17] LABS: BACTERIA,URINE Rare /HPF (None Seen); RBC,URINE TNTC /HPF (0-5); SQUAMOUS EPITHELIAL CELL,UR FEW Squamous (<= Few)
--- NOTE | 2023-08-15 15:29 | ED Physician Documentation ---
PD HPI FEMALE - Stated complaint Stated Complaint: - Chief complaint Chief Complaint: Abd Pain - Additional information Additional information: 38-year-old female with history of hypertension, hypercholesterolemia, asthma, pneumonia, hypothyroidism and recurrent kidney stones with chronic bladder infections requiring multiple different stents presents emergency department for left flank pain. Patient last had a flareup of this in mid June says that overall she feels like she has been doing fine at home but started experiencing left flank pain yesterday and said that she did not want to waste any time which is what brings her into the emergency department today she also says that she had a fever at home over the evening and has been feeling increased worsening flank pain with dysuria. PD PAST MEDICAL HISTORY - Past Medical History Cardiovascular: Hypertension, High cholesterol Respiratory: Asthma, Pneumonia Neuro: None Endocrine/Autoimmune: HyPOthyroidism GI: Other BLOCKMAN: Other : Chronic bladder infection, Kidney stones HEENT: None Psych: Depression, Bipolar disorder, ADD/ADHD, Post traumatic stress disorder Musculoskeletal: Chronic back pain, Other Derm: None - Past Surgical History Past Surgical History: Yes Ortho: Other HEENT: Tonsil/Adenoidectomy - Present Medications Home Medications: Ambulatory Orders Medication Instructions Recorded Confirmed Phenazopyridine HCl [Pyridium] 100 mg PO TID 2 Days #6 tablet 08/15/23 - Allergies Allergies/Adverse Reactions: Allergies Allergy/AdvReac Type Severity Reaction Status Date / Time morphine Allergy Nausea, Verified 08/15/23 13:49 rash sulfamethoxazole AdvReac Intermediate Anaphylaxis Verified 08/15/23 13:49 [From Bactrim] trimethoprim [From Bactrim] AdvReac Intermediate Emesis Verified 08/15/23 13:49 cilantro Allergy Respiratory Uncoded 08/15/23 13:49 - Social History Does the pt smoke?: No Smoking Status: Never smoker Does the pt drink ETOH?: Yes Does the pt have substance abuse?: No - Immunizations Immunizations are current?: Yes Immunizations: TDAP current <10years - POLST Patient has POLST: No POLST Status: Full Code PD ED PE NORMAL - Vitals Vital signs reviewed: Yes - General General: Alert and oriented X 3, No acute distress, Well developed/nourished - HEENT HEENT: Atraumatic, PERRL - Cardiac Cardiac: RRR - Respiratory Respiratory: No respiratory distress, Clear bilaterally - Abdomen Abdomen: Normal bowel sounds - Back Back: Other (left CVA tenderness). No: No CVA TTP - Psych Psych: Normal mood, Normal affect Results - Vitals Vitals: Vital Signs - 24 hr 08/15/23 08/15/23 08/15/23 13:45 15:27 17:00 Temperature 36.6 C Heart Rate 87 90 94 Respiratory 18 17 16 Rate Blood Pressure 147/83 H 139/81 H 120/69 O2 Saturation 100 97 96 08/15/23 18:20 Temperature Heart Rate 90 Respiratory 18 Rate Blood Pressure 141/85 H O2 Saturation 100 Oxygen O2 Source Room air - Labs Labs: Laboratory Tests 08/15/23 08/15/23 08/15/23 14:35 14:35 14:55 WBC 10.9 H RBC 5.01 Hgb 15.5 Hct 45.4 MCV 90.6 MCH 30.9 MCHC 34.1 RDW 11.9 L Plt Count 382 MPV 8.5 Neut # (Auto) 9.0 H Lymph # (Auto) 1.[address] [facility] # (Auto) 0.5 Eos # (Auto) 0.0 Baso # (Auto) 0.1 Absolute Nucleated RBC 0.00 Nucleated RBC % 0.0 Sodium 136 Potassium 4.2 Chloride 105 Carbon Dioxide 24 Anion Gap 7.0 BUN 8 Creatinine 0.8 Estimated GFR (MDRD) 80 L Glucose 112 H Calcium 10.0 Total Bilirubin 0.9 AST 12 ALT 10 Alkaline Phosphatase 57 Total Protein 7.8 Albumin 4.9 Globulin 2.9 Albumin/Globulin Ratio 1.7 Lipase 15 Urine Color YELLOW Urine Clarity HAZY Urine pH 6.0 Ur Specific [place] >=1.030 H Urine Protein TRACE Urine Glucose (UA) NEGATIVE Urine Ketones NEGATIVE Urine Occult Blood LARGE H Urine Nitrite NEGATIVE Urine Bilirubin NEGATIVE Urine Urobilinogen 0.2 (NORMAL) Ur Leukocyte Esterase TRACE H Urine RBC TNTC H Urine WBC 6-10 H Ur Squamous Epith Cells FEW Squamous Urine Bacteria Rare Ur Microscopic Review INDICATED Urine Culture Comments INDICATED Urine HCG, Qual NEGATIVE - Rads (name of study) CT KUB Relevant Findings:: Final report received, EMP independent interpretation of test, Other (Recent passage of left ureteral stone in the bladder. Interval resolution of left renal stone burden with residual faint calcification suggesting possible renal tubular acidosis.) PD Medical Decision Making - ED course ED course: 38-year-old female with multiple kidney stones requiring different stents presents emergency department for left flank pain. CT KUB was complete for further evaluation and it appears that there was a recent passage of a left ureteral stone in the to the bladder interval resolution of left renal stone burden with residual faint calcification suggesting possible renal tubular acidosis no left hydronephrosis or left hydroureter. She is also possibly constipated. While in the emergency department she was able to void out the stone it was about 4 to 5 mm and patient did state that she had some urethral burning after this. Labs are complete for further evaluation very mild leukocytosis, 10.9, no anemia no other significant electrolyte abnormalities. Urinalysis is negative for n itrites positive for trace leukocytes but a large amount of blood was found in her urine. Her pain is well-controlled with Toradol she is also given a liter of IV fluids and some hydromorphone. Given that she has passed the stone here in the ER there is no further workup indicated I do not believe that patient is experiencing renal tubular acidosis her labs are completely unremarkable. She is told to follow-up with urology outpatient all questions have been answered and patient safe for discharge at this point in time. Departure - Departure Disposition: 01 Home, Self Care Clinical Impression: Renal calculi Instructions: Kidney Stones Prescriptions: Phenazopyridine HCl [Pyridium] 100 mg PO TID 2 Days #6 tablet Comments: Thank you for trusting us with your care. You have passed the stone which is what was causing your left flank pain. Please follow-up with your urologist you can bring your kidney stone into him for further evaluation and testing per his recommendation and advice. I am giving you a dose of Pyridium here in the emergency department for urethral burning. I have also sent a prescription of this to your preferred pharmacy please come back to the ER if you are starting to notice any fevers or chills recurrence of flank pain or any other concerning symptoms. Forms: PCP List Discharge Date/Time: 08/15/23 18:20
[2023-08-15] MEDS: KETOROLAC 30 MG/ML VIAL IVP STA (16:19)
[2023-08-15] MEDS: SODIUM CHLORIDE 0.9% 1,000 ML IV ONE (16:19)
[2023-08-15] MEDS: HYDROmorphone 0.5 MG/0.5 ML SYRINGE IVP STA ×2 (16:20→17:57)
--- NOTE | 2023-08-15 16:58 | CT Report ---
PROCEDURE: KUB INDICATIONS: hx of kidney stones, left flank pain TECHNIQUE: A CT scan of the abdomen and pelvis was performed without the use of intravenous contrast. Images we re recorded and evaluated at appropriate window settings. Reformats: coronal and sagittal. For radiat ion dose reduction, the following was used: automated exposure control, adjustment of mA and/or kV ac cording to patient size. COMPARISON: 06/27/2023. FINDINGS: Image quality: Diagnostic. Lower chest: Unremarkable. Liver: No contour-deforming mass. Gallbladder: No radiopaque stones or wall thickening. Biliary tree: No intrahepatic or extrahepatic dilation, accounting for age. Spleen: No splenomegaly. Pancreas: No pancreatic ductal dilation. Adrenals: No adrenal nodule. Right Kidney: Previously, there were 4 nonobstructing parenchymal stones, one of which measured 4 mm and 2 of which measures 3 mm and one which measured 2 mm. There was also mild hydronephrosis secondar y to an obstructing proximal ureteral stone. There is almost complete resolution of parenchymal renal stone burden with a single millimeters stone remaining. The proximal ureteral stone is no longer pre sent. And there is no right hydronephrosis. Right Ureter: The proximal ureteral stone is no longer present. And there is no right hydronephrosis. Left Kidney: There are subtle findings suggestive of a paintbrush calcifications, suggesting possible renal tubular acidosis. No hydronephrosis. Previously, there are 2 3 mm stones in the left kidney. T hese are no longer present Left Ureter: Unremarkable Bladder: There is a 3 mm stone to the left of midline in the bladder at the base, suggesting interval passage of a left ureteral stone. Stomach, bowel and peritoneum: No gastric or small bowel dilation. There is moderately large fecal de bris in the rectum and sigmoid colon with mild wall thickening present. No pathologic free fluid. Lymph nodes: No central or retroperitoneal adenopathy. Vessels: No infrarenal aortic aneurysm. Reproductive organs: IUD Pelvic lymph nodes: No adenopathy by size criteria. Bones: No aggressive osseous abnormality. Other: No significant ventral or inguinal hernia. IMPRESSION: 1. Interval removal of a proximal right ureteral stone and likely removal of multiple small nonobstru cting right renal stones. No right hydronephrosis. Unremarkable right ureter. 2. Findings suggest recent passage of a left ureteral stone into the bladder. 3. Interval resolution of left renal stone burden with residual faint calcification suggesting possib le renal tubular acidosis. There is no left hydronephrosis or left hydroureter. 4. Findings suggesting a degree of constipation. Reviewed by: Chang Donnelly MD on 08/15/2023 4:57 PM PDT Approved by: Chang Donnelly MD on 08/15/2023 4:57 PM PDT Station ID: [id number]
[2023-08-15] MEDS: PHENAZOPYRIDINE 100 MG TABLET PO STA (18:18)
[2023-08-15 18:22] VITALS: BP 141/85; O2SAT 100
--- NOTE | 2023-08-17 13:16 | ED Physician Documentation ---
ED Addendum - Addendum Addendum: 08/17/23 13:16 Tried to call patient to discuss positive urine culture. There was no answer and there was no option to leave a voicemail.
== END 2023-08-15 18:20 | disposition home or self-care (01) ==
LOC: ED 13:09
DX: N20.0 Calculus of kidney (principal); D72.829 Elevated white blood cell count, unspecified; R31.9 Hematuria, unspecified; I10 Essential (primary) hypertension; J45.909 Unspecified asthma, uncomplicated; Z32.02 Encounter for pregnancy test, result negative; Z87.440 Personal history of urinary (tract) infections
CPT/HCPCS: 36415; 74176; 80053; 81001; 81025; 83690; 85025; 87086; 96361; 96374; 96375; 96376; 99284; 99285; A9270; J1170; 81003